=== PATIENT | male | born 1995 | race Caucasian/White ===

== ENCOUNTER 2019-06-14 12:50 | Emergency (ER) | payer OTHER, SELFPAY ==
[2019-06-14 12:53] VITALS: BP 140/92; PULSE 89; RESP 16; TEMP 36.7; O2SAT 96
--- NOTE | 2019-06-14 13:09 | W.ED.GENAD ---
Discharge Plan Disposition Patient Disposition: HOME Condition: Stable Discharge Details Chief Complaint: Orthopedic Clinical Impression: Knee sprain, bilateral Primary Care Provider: Samia,Local ED Provider: Maria Higginbotham Home Meds and New Rx's Prescriptions: New tramadol 50 mg tablet 50 mg PO BID PRN (Reason: pain) Qty: 4 RF: 0 Discharge Instructions Instructions: Knee Sprain (ED) Additional Instructions: Use knee braces and crutches for comfort. Take medications as directed. Please take Tylenol or Ibuprofen with food every 4-6 hours as needed for pain and swelling. Rest, ice, compression, elevation. You were put on a list for Ortho to follow-up with you they will give you a call. [facility] Follow up with primary care provider in 3-5 days. Return to ED sooner if any worsening or concerns. Increase oral fluids. Referrals: Omar Moctezuma MD [ [facility] STAFF PHYSICIAN] - Medical Decision Making 24-year-old male presents after a trip and fall down approximately 4 stairs landing on his bilateral knees. Patient states that he is unable to ambulate without severe pain and is tender to palpation over both the medial and lateral joints and over the patella. X-rays obtained including a sunrise view which are negative for any bony abnormality at this time. Patient given hydrocodone and Tylenol 5/325 mg p.o. in department. IMPRESSION: Normal radiographs of the left knee. IMPRESSION: Unremarkable radiographs of the right knee. Bilateral hinged knee braces ordered for patient and crutches and 600 mg ibuprofen p.o. Prescription ordered for Tramadol 50 ng PO BID prn # 6 tabs Instructed on RICE. 1517: Patient becoming very agitated and cussing at the staff, he is upset because he is in so much pain and we prescribed him fucking motrin. Care management called to speak to patient because he does not have a PCP. Will place patient on follow up Ortho call list and PCP list. Care management at and ED director Zurdo to deescalate patient. HPI General Mode of arrival: ambulatory. Date/Time Provider Initiated Documentation: 06/14/19 12:53. Limitations to Documentation: no limitations. Information obtained by: patient. HPI Narrative: Patient is a 24-year-old male who presents with bilateral knee pain after fall down 4 stairs at approximately 10:00 today. He states that his dog which is a pitbull pulled another stairs. He landed on both knees and has increased pain with ambulation. He is very tender to palpation, no obvious deformity. He denies any LOC, neck or back pain or any other injuries. Related Data Home Medications Medication Instructions Recorded Confirmed tramadol 50 mg PO BID PRN #4 tab 06/14/19 Previous Rx's Medication Instructions Recorded tramadol 50 mg PO BID PRN #4 tab 06/14/19 Allergies Allergy/AdvReac Type Severity Reaction Status Date / Time No Known Allergies Allergy Unverified 06/14/19 12:58 General Stated Complaint: Orthopedic AURA: 3 Review of Systems Narrative: Constitutional: Negative for weight loss, alert and oriented, well groomed, normal body habitus, appears comfortable. HEENT: Denies trauma, headaches, blurry vision, nasal discharge, sore throat, trouble swallowing. Chest: Denies chest pain, palpitations, irregular rhythm, hypertension. Respiratory: Denies Shortness of breath, cough, hemoptysis. GI: Denies abdominal pain, nausea, vomiting, diarrhea, constipation. : Denies dysuria, hematuria, flank pain, rectal bleeding. Extremities: Bilateral knee pain Neuro: Denies dizziness, blurry vision, weakness, syncope, headache or facial numbness. Hematologic: Denies easy bruising, intolerance to heat or cold, hair loss. [facility] Social History Smoking/Tobacco Use Status: Current every day Drug use: Occasionally Substance use type: marijuana Do you feel safe at home: Yes Do you feel safe in your relationship?: Yes Exam Narrative Exam Narrative: Constitutional: Allert and oriented x3. Appears stated age. Normal body habitus. Head: Normocephalic, no trauma. Eyes: Pupils PERRLA, Red reflex noted, EOM's intact. Eyelids symmetrical withour lesions, discharge, or swelling. ENT: Bilateral TM's WNL, External ear normal to inspection, no mastoid TTP, swelling, or erythema, Nasal turbinates WNL, no nasal discharge. Normal dentition, Posterior pharynx WNL, no exudate. Chest: RRR, Normal S1, S2, distal pulses intact. Resp: Lungs clear to auscultation bilaterally, no wheezes, rales, or rhonchi. Musculoskeletal: Normal gait, 5/5 strength to all four extremities. Bilateral knee pain. Negative anterior/posterior drawer test, negative Robbin test. He has tenderness to bilateral medial and lateral joints and over the patella. Distal pulses intact. Skin: No suspicious rashes or lesions. Capillary refill ?2 sec. Neurologic: Cranial nerves II-XII intact. Alert and oriented x 3. DTR's intact. Hematologic/Lymphatic: , no lymphadenopathy. Course Vital Signs Vital signs: Vital Signs Temperature 36.7 C 06/14/19 12:53 Pulse 89 06/14/19 12:53 Respiratory Rate 16 06/14/19 12:53 Blood Pressure 140/92 H 06/14/19 12:53 Pulse Oximetry 96 06/14/19 12:53 Temperature 36.7 C 06/14/19 12:53 Temperature Source Skin 06/14/19 12:53 Pulse 89 06/14/19 12:53 Respiratory Rate 16 06/14/19 12:53 Respiratory Effort 06/14/19 12:59 Blood Pressure 140/92 H 06/14/19 12:53 Blood Pressure Position Sitting 06/14/19 12:53 Pulse Oximetry 96 06/14/19 12:53 Oxygen Delivery Method Room Air 06/14/19 12:53 Oxygen Flow Rate 0 06/14/19 12:53 Pain Level 8 06/14/19 12:53
[2019-06-14] MEDS: HYDROcodone 5/Acetaminophen 325 TAB PO (13:14)
--- NOTE | 2019-06-14 13:50 | DI.RAD_ITS ---
EXAM: XR KNEE RT 4V AP,LAT,NANCY,PAT CLINICAL HISTORY: FALL ONTO BILATERAL KNEES. TECHNIQUE: 2D digital imaging was performed. COMPARISON: No exams were available for comparison FINDINGS: BONES: No acute fracture is present. No bony destructive lesion is seen. JOINTS: The knee is normally aligned. No joint effusion is seen. SOFT TISSUE: Normal. IMPRESSION: Unremarkable radiographs of the right knee.
--- NOTE | 2019-06-14 13:51 | DI.RAD_ITS ---
EXAM: XR KNEE LT 4V AP,LAT,NANCY,PAT CLINICAL HISTORY: Fall onto knees. TECHNIQUE: 2D digital imaging was performed. COMPARISON: XR KNEE RT 4V AP,LAT,NANCY,PAT from 06/14/2019 FINDINGS: BONES: No acute fracture is present. No bony destructive lesion is seen. JOINTS: The knee is normally aligned. No joint effusion is seen. SOFT TISSUE: Normal. IMPRESSION: Normal radiographs of the left knee.
[2019-06-14] MEDS: Ibuprofen 600 MG TAB PO (15:11)
--- NOTE | 2019-06-14 16:21 | PDOC.ERCMPRO ---
- If Service Date Differs Date of service: 06/14/19 Time of Service: 16:21 Care Management Progress Note CM meets with patient accompanied by Zurdo Pino, ED Director. Shmuel voices some complaints about his care in the ED and asks to go home. He will follow-up with Dr. Moctezuma at [facility]. RODOLFO faxes a referral to Dr. Deluca, [facility], who is today's tele doc, as Shmuel does not have a local primary care physician.
== END 2019-06-14 15:32 | disposition home or self-care (01) ==
PROVIDERS: Emergency Provider Registered Nurse Emergency
DX: S83.91XA Sprain of unspecified site of right knee, initial encounter (principal); S83.92XA Sprain of unspecified site of left knee, initial encounter; W10.8XXA Fall (on) (from) other stairs and steps, initial encounter
CPT/HCPCS: 99284; 73564; E0114; L1810

== ENCOUNTER 2020-02-07 17:23 | Emergency (ER) | payer OTHER, SELFPAY ==
[2020-02-07 17:30] VITALS: BP 164/114; PULSE 72; TEMP 36.7; O2SAT 98
--- NOTE | 2020-02-07 17:38 | W.ED.GENAD ---
Discharge Plan Disposition Patient Disposition: HOME Condition: Good Discharge Details Clinical Impression: Contusion of hand Primary Care Provider: Unknown,Unknown ED Provider: Marcy Roberts Home Meds and New Rx's Prescriptions: No Action No Known Home Meds RF: 0 Discharge Instructions Instructions: Contusion in Adults (ED) Additional Instructions: Encourage rest, ice, elevation. Tylenol and ibuprofen as needed for discomfort. Your x-rays are reassuring today. Your symptoms are more consistent with contusion and swelling. However, if your pain persist over the next 1 to 2 weeks please follow-up with your primary care for reevaluation. Please stop smoking. Please discuss your elevated blood pressure with your primary care. If you develop any redness, warmth, drainage, increased pain, numbness/tingling or other new/worsening symptoms to seek care urgently once again. Please consider an Stef wrap to help with compression as this will help with the swelling and pain. Discharge Data Discharge Date/Time-TO BE ENTERED AT DEPARTURE: 02/07/20 18:40 Medical Decision Making Patient is a pleasant [id number] 24-year-old male presents today with chief complaint left hand pain. He reports that around 1 PM today he struck the central dorsal aspect of his left hand with a hammer. Reports she was able to continue his workday without difficulty. However, once he was at home more sedentary the pain began to increase. States that his hand is feeling very stiff. He reports subjective swelling. Report pain with extension of his fingers or wrist. On exam, patient appears nontoxic. He is noted to be hypertensive at 164/114, vital signs otherwise within normal limits. Do not appreciate any objective evidence of trauma. Did not appreciate swelling, ecchymosis. He is able to extend all his fingers against resistance with no evidence of ligamentous injury. No palpable bony abnormality. Able to extend his wrist well. Patient does have limited bath tester strength secondary to pain in the dorsal aspect of his hand. Will obtain x-rays to evaluate for any bony pathology. He has not taken anything for discomfort will give Tylenol and ibuprofen. FINDINGS: Bones/joints: Unremarkable. Soft tissues: Unremarkable. IMPRESSION: No evidence for acute bony injury. If clinical symptoms persist recommend followup film in 7-10 days. Discussed these findings with the patient. As he is having some swelling and discomfort I did advise a splint or an Stef wrap which he has declined. Encourage rest, ice, elevation. Advise follow-up with primary care regarding his hand discomfort as well as his elevated blood pressure. Return precautions were discussed. Offered work note which patient declined. All his questions and concerns were addressed and he is agreement this plan. Patient reports that he does have a primary care with her name. HPI General Mode of arrival: ambulatory. Date/Time Provider Initiated Documentation: 02/07/20 17:37. Limitations to Documentation: no limitations. Information obtained by: patient, family (Significant other) and RN notes reviewed. History of Present Illness 24 year old M presents to the emergency department with the chief complaint of Left hand pain, described as moderate, with intensity rated at 7. Quality is described as aching, and is localized to the left and upper extremity. Patient reports no radiation. Patient started experiencing this hour(s) and it has been constant. Immobilization improves symptom(s), Movement worsens symptoms . Patient notes no other symptoms.. Patient did receive the following treatments prior to arrival, none Related Data Home Medications Medication Instructions Recorded Confirmed Unknown [No Known Home Meds] 02/07/20 02/07/20 Allergies Allergy/AdvReac Type Severity Reaction Status Date / Time No Known Allergies Allergy Unverified 02/07/20 17:33 General Stated Complaint: Orthopedic AURA: 3 Review of Systems Constitutional Constitutional: Reports as per HPI, Denies chills, Denies fever(s), Denies headache(s) and Denies weakness ENT Ears, Nose, Mouth, and Throat: Denies headache(s) Cardiovascular Cardiovascular: Reports as per HPI Respiratory Respiratory: Reports as per HPI and Denies cough Musculoskeletal Musculoskeletal: Reports as per HPI and Denies tingling Integumentary/Breasts Skin/Breast: Reports as per HPI, Denies rash and Denies wounds Neurologic Neurologic: Reports as per HPI, Denies headache(s), Denies tingling, Denies paresthesias and Denies weakness [facility] Medical History No-show for appointment Social History Smoking/Tobacco Use Status: Current every day Tobacco Type: cigarettes Alcohol Intake: current Alcohol Intake frequency: a few times a week Alcohol type: beer Drug use: Occasionally Substance use type: marijuana Do you feel safe at home: Yes Do you feel safe in your relationship?: Yes Exam Const General: cooperative, healthy appearing, comfortable, no acute distress, well developed and well groomed Nutritional Appearance: average body habitus and well nourished Orientation: alert and awake Resp Effort & Inspection: normal respiratory effort, able to speak in complete sentences and no respiratory distress Cardio Rate: regular rate Rhythm: regular rhythm Skin General skin exam: no rashes or lesions noted Lesions: no lesions Rashes: no rashes Trauma: no lacerations or abrasions Neuro General: patient alert and patient awake Cognition: normal cognition Speech: speech normal Gait: normal gait Motor: muscle tone normal throughout Sensory Exam: no sensory deficits noted Extrem Left upper extremity: normal to inspection, full ROM, normal capillary refill, no joint enlargement, elbow/forearm Details: normal to inspection, wrist Details: normal to inspection, tenderness (dorsal distal radius, no pain over snuffbox), swelling (minor swelling dorsal left wrist), normal ROM, normal vascular exam and radial pulse present; no unusual warmth, no abrasions, no lacerations, no ecchymosis and no crepitus and hand Details: normal to inspection, normal capillary refill, neuromotor exam normal, neurosensory exam normal, tendon exam normal, tenderness Location: of the dorsal hand Location: distally and proximally, vascular exam Details: radial pulse present and normal capillary refill, normal ROM of fingers and swelling Location: of the dorsal hand Location: proximally; no ecchymosis and no crepitus Psych Appearance: grossly normal and well kempt Mental Status: mental status grossly normal Speech and Movement: speech and movement normal Course Vital Signs Vital signs: Vital Signs Temperature 36.7 C 02/07/20 17:30 Pulse 72 02/07/20 17:30 Blood Pressure 164/114 H 02/07/20 17:30 Pulse Oximetry 98 02/07/20 17:30 Temperature 36.7 C 02/07/20 17:30 Pulse 72 02/07/20 17:30 Respiratory Effort Non-Labored 02/07/20 17:32 Blood Pressure 164/114 H 02/07/20 17:30 Blood Pressure Position Sitting 02/07/20 17:30 Pulse Oximetry 98 02/07/20 17:30 Oxygen Delivery Method Room Air 02/07/20 17:30 Oxygen Flow Rate 0 02/07/20 17:30 Pain Level 6 02/07/20 17:34
--- NOTE | 2020-02-07 17:45 | DI.RAD_ITS ---
EXAM: XR HAND LT COMPLETE CLINICAL HISTORY: struck with hammer. TECHNIQUE: 2D digital imaging was performed. COMPARISON: CR LEFT HAND COMPLETE from 09/02/2014 FINDINGS: BONES: No acute fracture is present. No bony destructive lesion is seen. JOINTS: No dislocation present. SOFT TISSUE: Normal. IMPRESSION: Unremarkable radiographs of the left hand. DATA REPOSITORY: RADIATION DOSE DELIVERED:
[2020-02-07] MEDS: Acetaminophen 500 MG TAB 1000 MG PO (18:03)
[2020-02-07] MEDS: Ibuprofen 600 MG TAB PO (18:03)
--- NOTE | 2020-02-08 16:04 | DI.VRAD_ITS ---
PROCEDURE INFORMATION: Exam: XR Left Hand Exam date and time: 02/07/2020 6:15 PM Age: 24 years old Clinical indication: Injury or trauma; Other: Hammer to proximal 3 metacarpal; Blunt trauma (contusions or hematomas) and wound; Hand; Left TECHNIQUE: Imaging protocol: XR Left hand. Views: 3 or more views. COMPARISON: CR LEFT HAND COMPLETE 01/28/2015 04:43 FINDINGS: Bones/joints: Unremarkable. Soft tissues: Unremarkable. IMPRESSION: No evidence for acute bony injury. If clinical symptoms persist recommend followup film in 7-10 days. Dictated and Authenticated by: Vika Glasgow MD. Ordering:MERCEDES Vidal MD
== END 2020-02-07 18:40 | disposition home or self-care (01) ==
PROVIDERS: Emergency Provider Physician Assistant
DX: S60.222A Contusion of left hand, initial encounter (principal); W27.0XXA Contact with workbench tool, initial encounter; Y99.0 Civilian activity done for income or pay; R03.0 Elevated blood-pressure reading, without diagnosis of hypertension
CPT/HCPCS: 99283; 73130

== ENCOUNTER 2020-04-06 12:40 | Emergency (ER) | payer SELFPAY ==
[2020-04-06 12:45] VITALS: BP 136/100; PULSE 94; RESP 16; TEMP 36.5; O2SAT 97
--- NOTE | 2020-04-06 12:54 | ED.GENADUL_ITS ---
Discharge Plan Disposition Patient Disposition: HOME Condition: Stable Discharge Details Clinical Impression: Finger laceration Primary Care Provider: None,None ED Provider: Lindsey Guerrero Home Meds and New Rx's Prescriptions: New cephalexin [Keflex] 500 mg capsule 500 mg PO TID 5 Days Qty: 15 RF: 0 Discharge Instructions Instructions: Finger Laceration (ED) Additional Instructions: Keep wound clean and dry. Cover wound with bandage if risk of contamination. Otherwise you can keep the wound open to air if resting at home to allow edges to dry and heal. Take antibiotics until finished. Return to the emergency department in 7 days for suture removal. You can return to the emergency department at any time if you develop any worsening or new concerning symptoms such as fever, increased pain, redness or swelling. Discharge Data Discharge Date/Time-TO BE ENTERED AT DEPARTURE: 04/06/20 14:16 Discharge Physician: Lindsey Guerrero Medical Decision Making 25-year-old male presents with left second finger laceration sustained while cutting carpet with a knife at work prior to arrival. Patient is a 1.5 cm straight laceration on his left dorsal second finger. N eurovascular intact. No evidence of tendon injury. No obvious foreign body. Tetanus given. Wound irrigated and soaked. 3 nylon 5-0 sutures placed at bedside. Due to questionable contaminated knife, will give prophylactic antibiotics. Advised to return to the ED in 7 days for suture removal. Usual and customary return precautions given prior to discharge. Medical Records Medical records reviewed: Yes I reviewed the patient's medical records. HPI General Mode of arrival: ambulatory . Date/Time Provider Initiated Documentation: 04/06/20 12:45 . Limitations to Documentation: no limitations . Information obtained by: patient . HPI Narrative: Patient is a 25-year-old male who presents with left second finger laceration sustained with a knife while cutting carpet at work. Last tetanus 2007. Patient denies any known foreign bodies. Related Data Home Medications Medication Instructions Recorded Confirmed cephalexin [Keflex] 500 mg PO TID 5 Days #15 cap 04/06/20 Previous Rx's Medication Instructions Recorded cephalexin [Keflex] 500 mg PO TID 5 Days #15 cap 04/06/20 Allergies Allergy/AdvReac Type Severity Reaction Status Date / Time No Known Allergies Allergy Unverified 04/06/20 12:48 General Stated Complaint: Laceration AURA: 3 Review of Systems All systems reviewed & are unremarkable except as noted in HPI and below PFSH Medical History (Updated 04/06/20 @ 19:31 by Lindsey Guerrero DO) No significant past medical history Surgical History (Updated 04/06/20 @ 19:31 by Lindsey Guerrero DO) No significant past surgical history Social History Smoking/Tobacco Use Status: Current every day Tobacco Type: cigarettes Smoking risk assessment performed?: Yes Alcohol Intake: current Alcohol Intake frequency: a few times a week Alcohol type: beer Drug use: Occasionally Substance use type: marijuana Do you feel safe at home: Yes Do you feel safe in your relationship?: Yes Exam Const General: cooperative, healthy appearing and no acute distress HENMT Head: normal to inspection Mouth: oral mucosae normal Eyes General: appearance normal, both eyes and all related structures Neck Neck: normal visual inspection Resp Effort & Inspection: normal respiratory effort and able to speak in complete sentences Cardio Rate: regular rate Skin General skin exam: no rashes or lesions noted Neuro General: patient alert, patient awake and patient oriented x3 Motor: muscle tone normal throughout Extrem Left upper extremity: hand Hand/finger images: 1. 1.5cm straight laceration on dorsal aspect of L 2nd finger of distal phalange between DIP and PIP joint. No active bleeding. No tendon injury. No bony involvement. Psych Appearance: grossly normal Affect: normal affect Course Vital Signs Vital signs: Vital Signs Temperature 97.7 F 04/06/20 12:45 Pulse 94 H 04/06/20 12:45 Respiratory Rate 16 04/06/20 12:45 Blood Pressure 136/100 H 04/06/20 12:45 Pulse Oximetry 97 04/06/20 12:45 Temperature 97.7 F 04/06/20 12:45 Temperature Source Temporal Artery Scan 04/06/20 12:45 Pulse 94 H 04/06/20 12:45 Respiratory Rate 16 04/06/20 12:45 Respiratory Effort 04/06/20 12:47 Blood Pressure 136/100 H 04/06/20 12:45 Blood Pressure Position Sitting 04/06/20 12:45 Pulse Oximetry 97 04/06/20 12:45 Oxygen Delivery Method Room Air 04/06/20 12:45 Oxygen Flow Rate 0 12/12/20 12:45 Procedures Laceration Laceration 1: Site: hand (2nd finger) Side (If applicable): left Size (cm): 1.5 Description: linear Depth: simple, single layer Local Anesthetic: Lidocaine 1% Amount of anesthesia used (mL): 4 Pre-repair: wound explored and irrigated extensively Skin layer closed with: nylon Size (cm): 5-0 Number of sutures: 3 Technique: simple, interrupted
[2020-04-06] MEDS: Acetaminophen 325 MG TAB 650 MG PO (13:14)
== END 2020-04-06 14:16 | disposition home or self-care (01) ==
PROVIDERS: Emergency Provider Physician Assistant
DX: S61.211A Laceration without foreign body of left index finger without damage to nail, initial encounter (principal); W26.0XXA Contact with knife, initial encounter; Y99.0 Civilian activity done for income or pay
CPT/HCPCS: 12001; 90471

== ENCOUNTER 2021-01-02 16:56 | Outpatient (REF) | payer SELFPAY ==
[2021-01-02 22:04] LABS: Calculated LDL 108 mg/dL (<100); Cholesterol 245 mg/dL (<200); HDL Cholesterol 60 mg/dL (40-60); Triglyceride 389 mg/dL (<150)
[2021-01-02 22:11] LABS: Hemoglobin A1C 5.4 % (<5.7)
== END 2021-01-02 16:57 | disposition home or self-care (01) ==
LOC: LBN 16:56
PROVIDERS: PCP Nurse Practitioner Family; Visit Provider Nurse Practitioner Family
DX: Z13.1 Encounter for screening for diabetes mellitus (principal); Z13.220 Encounter for screening for lipoid disorders
CPT/HCPCS: 80061; 83036

== ENCOUNTER → 2022-01-06 14:42 | Outpatient (CLI) | payer OTHER, SELFPAY ==
--- NOTE | 2022-01-06 12:45 | DI.RAD_ITS ---
Exam(s) XR TIB/FIB LT EXAM: XR TIB/FIB LT CLINICAL HISTORY: Pain in LEFT Leg--M79.605. TECHNIQUE: 2D digital imaging was performed. Two views. COMPARISON: No exams were available for comparison FINDINGS: BONES: No acute fracture is present. No bony destructive lesion is seen. Visualized portion of knee a nd ankle joints are unremarkable. There is a small talar beak. SOFT TISSUE: Normal. IMPRESSION: Unremarkable radiographs of the left tibia and fibula. DATA REPOSITORY: RADIATION DOSE DELIVERED:
== END ==
PROVIDERS: PCP Nurse Practitioner Family; Visit Provider Nurse Practitioner Family
DX: M79.605 Pain in left leg (principal)
CPT/HCPCS: 73590

== ENCOUNTER 2022-01-16 16:54 | Outpatient (REF) | payer OTHER, SELFPAY ==
[2022-01-16 21:08] LABS: CREATININE 1.2 mg/dL (0.70-1.30); Potassium 3.7 mmol/L (3.5-5.1)
[2022-01-16 21:38] LABS: Calculated LDL 78 mg/dL (<100); Cholesterol 193 mg/dL (<200); HDL Cholesterol 58 mg/dL (40-60); Triglyceride 288 mg/dL (<150)
== END 2022-01-16 16:55 | disposition home or self-care (01) ==
LOC: LBN 16:54
PROVIDERS: PCP Nurse Practitioner Family; Visit Provider Nurse Practitioner Family
DX: I10 Essential (primary) hypertension (principal); E78.5 Hyperlipidemia, unspecified
CPT/HCPCS: 80061; 82565; 84132

== ENCOUNTER 2024-10-01 22:42 | Emergency (ER) | payer OTHER, SELFPAY ==
[2024-10-01] VITALS (9 sets, daily range): BP systolic 141–168; BP diastolic 119–125; PULSE 95–141; RESP 0–23; O2SAT 96–99
--- NOTE | 2024-10-01 22:47 | W.ED.GENAD ---
Discharge Plan Disposition Patient Disposition: Admit to [facility] Condition: Stable Discharge Details Clinical Impression: Fall from height of greater than 3 feet, Fracture of left tenth rib, Fracture of left eleventh rib, Laceration of spleen, Alcohol intoxication, Elevated liver function tests Primary Care Provider: Demetrius Woodruff ED Provider: Kenneth Dougherty [place] [facility] and New Rx's Prescriptions: No Action lisinopril 20 mg tablet 20 mg PO DAILY Qty: 90 3RF cyclobenzaprine 10 mg tablet 10 mg PO ONCE Patient Comments: TAKE 1 TABLET BY MOUTH AT BEDTIME NEEDED FOR MUSCLE SPASM HPI General Mode of arrival: wheelchair. Date/Time Provider Initiated Documentation: 10/01/24 22:46. Limitations to Documentation: no limitations. Information obtained by: patient and RN notes reviewed. HPI Narrative: Patient presents to ED with left sided thoracic and abdominal pain. Patient fell out of a second story door that he did not realize had no stairs down. Landed on a knee wall striking the left thoracal abdominal area. He denies striking his head and had no loss of consciousness. He denies any neck pain or neurologic symptoms. Upper and lower extremities without pain or deformity. He has pain along the lower left lateral ribs and flank. He does not feel short of breath but is unable to take a deep breath because of pain. Event just occurred and he had his girlfriend drive him in to the ED. Related Data Home Medications ?Medication ?Instructions ?Recorded ?Confirmed lisinopril 20 mg tablet 20 mg PO DAILY #90 tabs 03/20/24 10/01/24 cyclobenzaprine 10 mg tablet 10 mg PO ONCE 10/01/24 10/01/24 Previous Rx's ?Medication ?Instructions ?Recorded lisinopril 20 mg tablet 20 mg PO DAILY #90 tabs 03/20/24 Allergies Allergy/AdvReac Type Severity Reaction Status Date / Time No Known Allergies Allergy Verified 10/01/24 22:52 General AURA: 3 Exam Narrative Exam Narrative: Gen: WDWN male is uncomfortable holding left side. VS per triage. HENT: NC/AT. Normal face. Eyes: PERRL and EOMI. Neck: Trachea midline. Non-tender c-spine. Chest: Normal breathing with clear and equal BS. Chest wall tender left lateral/posterior. CV: RRR w/o murmur. Good distal pulses. Abd: Soft/ND. Tender left side with abrasion/bruising to left flank. Back: No TLS tenderness. Neuro: A+Ox3. Normal speech and mentation. CN II-XII intact. No gross motor or sensory deficit. Ext: No deformity or tenderness. Normal ROM. Skin: Warm and dry. Medical Decision Making Patient presenting to ED with left thoracal abdominal trauma after a second story fall out of a doorway onto a knee wall. He did not strike his head and had no loss of consciousness. He has no neck or back pain, neurologic symptoms, extremity pain or deformity. He has a GCS of 15 and is awake and talking. He has breath sounds bilaterally. Will establish 2 IVs and start fluids. Morphine as needed as needed. Trauma labs and CT of the chest abdomen pelvis ordered. Patient remains hemodynamically stable. His initial hemoglobin is normal at 16.3. CT of chest and abdomen shows left 10th and 11th rib fracture with a grade 2 splenic laceration without extravasation. There is also some stranding in the left retroperitoneum in the same area suggesting a small hematoma. Call was placed to [facility] and I spoke to trauma surgery. They unfortunately are at capacity and are very limited in ability to accept patients. However, they have reviewed the images and feel that he is likely a candidate for admission here for monitoring and repeat hemoglobins, pain control. Expectation is that if there is any acute change he would be accepted for immediate transfer to [facility] at that time. I have placed a call to our general surgeon, Dr. Roberts to discuss with him. I have spoke to Dr. Roberts. He has agreed to admit the patient to the ICU for close monitoring and repeat hemoglobin/hematocrit. I have discussed this with the patient who is comfortable with admission here. Patient's initial labs were hemolyzed. His CMP has come back with elevated liver function with an AST of 700 and ALT of 350. His alcohol level is also elevated at 210. I have sat down and had a talk with him. He does admit to some heavy drinking on weekends with his buddies. He is not a daily drinker. He has never had withdrawal symptoms. We have discussed cutting back on his alcohol use given elevated liver function. He also has hyponatremia at 130 little bit of an anion gap at 16 suggesting some heavy drinking over the weekend. Also of note, nursing and lab are reporting that his blood is significantly lipemic. Glucose is also elevated at 190. These will need to be addressed by his primary care in an outpatient setting. Imaging Data Radiologic Study: Attestation: I personally reviewed and interpreted this imaging study as follows: Imaging: CT Scan My impression: see [facility] Lab Data Lab results reviewed: Yes I reviewed the patient's lab results. Lab results narrative: see [facility] Critical Care Time Critical Care Time Critical Care Time: Yes Total Critical Care Time: 45 Attestation: Upon my evaluation, this patient had a high probability of imminent or life-threatening deterioration, which required my direct attention, intervention, and personal management. I have personally provided 45 minutes of critical care time exclusive of time spent on separately billable procedures. Time includes monitoring for potential decompensation, ordering of tests and medications, review of laboratory and radiology results, discussion with consultants and documentation . Interventions were performed as documented above in procedures. [facility] All Active Problems (Updated 10/02/24 @ 01:00 by Kenneth Dougherty MD) Elevated liver function tests (Acute) Alcohol intoxication (Acute) Laceration of spleen (Acute) Fracture of left eleventh rib (Acute) Fracture of left tenth rib (Acute) Fall from height of greater than 3 feet (Acute) Infrapatellar bursitis of both knees (Acute) Overweight (Acute) Medical History Hypertension Hyperlipidemia Surgical History No significant past surgical history Family History Mother No problems noted. Father No problems noted. Sister No problems noted. Brother No problems noted. Maternal Grandfather , 78 No problems noted. Paternal Grandfather No problems noted. Maternal Grandmother No problems noted. Paternal Grandmother No problems noted. Social History Smoking/Tobacco Use Status: Current every day Tobacco Type: cigarettes Tobacco: How many years used: 10 Quit status: has quit before Second Hand Exposure: Yes Smoking risk assessment performed?: Yes Alcohol Intake: current Alcohol Intake frequency: a few times a week Alcohol type: beer, wine and hard liquor Drug use: Socially Substance use type: marijuana Do you feel safe at home: Yes Do you feel safe in your relationship?: Yes
--- NOTE | 2024-10-01 23:00 | DI.CT_ITS ---
Exam(s) CT CHEST/ABD/PEL W EXAM: CT CHEST/ABD/PEL W CLINICAL HISTORY: trauma/fell 10ft hit left side on knee wall. TECHNIQUE: Imaging Protocol: Axial computed tomography images with coronal and sagittal reformatted images were created and reviewed CONTRAST MATERIAL: Intravenous: Omnipaque 350 Contrast volume:100 ml Oral: None COMPARISON: No exams were available for comparison FINDINGS: CHEST: LUNGS: No infiltrates nor lung contusion or pleural effusion nor pneumothorax. No incidental nodules .. MEDIASTINUM: No evidence of sternal fracture or mediastinal hematoma. No hilar nor mediastinal adeno ellie. CARDIAC: Heart size is normal. There is no pericardial effusion.Thoracic aorta unremarkable. OSSEOUS: There are nondisplaced fractures of the posterior aspect of left 9th, 10th, and 11th ribs. No pneumothorax.. ABDOMEN: There is no ascites. No obvious bowel wall hematoma. LIVER: Intact. No laceration or subcapsular hematoma. No lesions. No dilated intrahepatic ducts. GALLBLADDER/BILIARY: No obvious gallbladder pathology. CBD is not dilated. PANCREAS: No evidence of pancreatic mass nor dilatation of the pancreatic duct. SPLEEN: There is a significant laceration and contusion in the inferior half of the spleen. Small am ount of adjacent fluid-blood. This splenic vein appears patent. ADRENALS: Right adrenal unremarkable. Some streaking around the left adrenal noted. Probably relate d to small vessel hemorrhage. KIDNEYS: Right kidney unremarkable. However, there is some abnormal streaking medial to the left kid pablo prominently around the left renal vein which itself appears patent. Suspect small vessel injury. The left renal artery appears intact.. No incidental calculi nor masses nor hydronephrosis. ABDOMINAL AORTA: Intact. Unremarkable. LYMPH NODES: There is no retroperitoneal nor paraaortic adenopathy. ABDOMINAL WALL: No evidence of significant anterior abdominal wall nor inguinal hernia. GI: There is no evidence of bowel obstruction. PELVIS: LYMPH NODES: There is no intrapelvic nor inguinal adenopathy. GI: No evidence of appendicitis.No evidence of sigmoid diverticulitis. URINARY BLADDER: Not distended. Does not contain clots nor incidental lesions nor calculi. Pelvic u reters are not dilated. REPRODUCTIVE: Prostate normal size. OSSEOUS: No compression fractures of the vertebrae evident. No listhesis. IMPRESSION: 1. There are acute nondisplaced fractures of the left 9th, 10th, and 11th ribs. No pneumothorax. No lung contusion or pleural effusion. 2. There is significant laceration contusion in the inferior half of the spleen. 3. There is some fat stranding in the left side of the retroperitoneum around the left renal vein and artery and left adrenal. Consistent with small vessel injury hemorrhage. 4. Close clinical follow-up recommended. Preliminary virtual Radiology report was reviewed RADIATION DOSE DELIVERED: 344.19mGy.cm Total DLP DATA REPOSITORY: All CT scans at this facility are submitted to the National Radiology Data Registry (NRDR) Dose Index Registry (DIR) with the [employer] (ACR). RADIATION OPTIMIZATION: All CT scans at this facility use at least one of these dose optimization te chniques: automated exposure control; mA and/or kV adjustment per patient size (includes targeted exa ms where dose is matched to clinical indication); or iterative reconstruction.
[2024-10-01] MEDS: MORPHine 10 MG/ML VIAL 5 MG IVP (23:06)
[2024-10-01 23:08] LABS: Abs Immature Grans 0.03 10^3/uL (0.0-0.06); HCT 43.5 % (40.0-50.0); HGB 16.3 g/dL (13.5-17.5); MCH 34.4 pg (27.0-33.0); MCHC 37.5 % (32.0-36.0); MCV 92 fL (80-95); MPV 9.3 fL (8.0-11.0); Platelet Count 346 10^3/uL (130-400); RBC 4.74 10^6/uL (4.36-5.78); RDW 13.1 % (11.8-14.1); RDW-SD 44.6 fL; WBC 7.17 10^3/uL (4.4-10.8)
[2024-10-01] MEDS: Omnipaque 350 MG/ML 100 ML BTL IJ (23:08)
[2024-10-01] MEDS: Normal Saline - Diluent 50 ML VIAL IJ (23:09)
[2024-10-01 23:31] LABS: Absolute Basophil Count 0.07 10^3/uL (0.0-0.2); Absolute Eosinophil Count 0.07 10^3/uL (0.0-0.7); Absolute Monocyte Count 0.29 10^3/uL (0.1-0.8); Absolute Neutrophil Count 2.94 10^3/uL (1.2-6.7); Bands % 1 %
[2024-10-01 23:32] LABS: Diff Comment Manual Differential; RBC Morphology Normal
--- NOTE | 2024-10-01 23:40 | DI.VRAD_ITS ---
Addendum created by Godfrey Schaffer MD on 10/01/2024 11:42:45 PM EDT: THIS REPORT CONTAINS FINDINGS THAT MAY BE CRITICAL TO PATIENT CARE. The findings were verbally communicated by me to DOMINICK ROSAS via telephone conference at 11:42 PM EDT on 10/01/2024. The findings were acknowledged and understood. Initial report created on 10/01/2024 11:40:29 PM EDT: PROCEDURE INFORMATION: Exam: CT Chest With Contrast; Diagnostic Exam date and time: 10/01/2024 11:04 PM Age: 29 years old Clinical indication: Other: Fall 10ft onto left side TECHNIQUE: Imaging protocol: Diagnostic computed tomography of the chest with contrast. 3D rendering (Not supervised by radiologist): MIP and/or 3D reconstructed images were created by the technologist. Contrast material: 350; Contrast volume: 100 ml; Contrast route: INTRAVENOUS (IV); COMPARISON: No relevant prior studies available. FINDINGS: Lungs: Normal. Pleural spaces: Unremarkable. No pneumothorax. No pleural effusion. Heart: Normal. Lymph nodes: No pathologically-enlarged lymph nodes. Vasculature: Unremarkable. No aortic aneurysm. Bones/joints: Acute, mildly displaced left posterior 10th and 11th rib fractures. Soft tissues: Normal. IMPRESSION: Acute, mildly displaced left posterior 10th and 11th rib fractures. PROCEDURE INFORMATION: Exam: CT Abdomen And Pelvis With Contrast Exam date and time: 10/01/2024 11:04 PM Age: 29 years old Clinical indication: Other: Fall 10ft onto left side TECHNIQUE: Imaging protocol: Computed tomography of the abdomen and pelvis with contrast. 3D rendering (Not supervised by radiologist): MIP and/or 3D reconstructed images were created by the technologist. Contrast material: 350; Contrast volume: 100 ml; Contrast route: INTRAVENOUS (IV); COMPARISON: No relevant prior studies available. FINDINGS: Liver: Normal. Gallbladder and biliary ducts: Normal. Pancreas: Normal. Spleen: 2.6 cm hypodensity within the central and inferior spleen (series 6, images 48-53), most compatible with splenic laceration. No evidence of active hemorrhage. Adrenal glands: Normal. No mass. Kidneys and ureters: Normal. Stomach and bowel: Normal. Appendix: Appendix normal. Intraperitoneal space: Unremarkable. No free air. No significant fluid collection. Retroperitoneal space: Minimal fat stranding within the left retroperitoneum at the level of the left renal vein and artery, possibly minimal hemorrhage from small-vessel injury (series 6, images 59-65). Vasculature: Unremarkable. No abdominal aortic aneurysm. Lymph nodes: Unremarkable. No enlarged lymph nodes. Urinary bladder: Unremarkable as visualized. Reproductive: Unremarkable as visualized. Bones/joints: No acute abnormality. Soft tissues: Normal. IMPRESSION: 1. 2.6 cm hypodensity within the central and inferior spleen (series 6, images 48-53), most compatible with splenic laceration (grade II injury). No evidence of active hemorrhage. 2. Minimal fat stranding within the left retroperitoneum at the level of the left renal vein and artery, possibly minimal hemorrhage from small-vessel injury (series 6, images 59-65). Dictated and Authenticated by: Godfrey Schaffer MD. Orderin Farhat Cooper MD
[2024-10-01] MEDS: Lactated Ringers 1,000 ML 1000 ML IV (23:48)
[2024-10-02] VITALS (50 sets, daily range): BP systolic 124–185; BP diastolic 93–135; PULSE 99–178; RESP 8–28; O2SAT 78–100
[2024-10-02 00:02] LABS: Albumin 3.4 g/dL (3.4-5.0); BUN 17 mg/dL (7-18); Bilirubin, Total 1.1 mg/dL (0.2-1.0); Calcium 6.8 mg/dL (8.5-10.1); Chloride 95 mmol/L (98-107); Estimated GFR 103.84 (mL/min/1.73m2); Glucose 190 mg/dL (74-106); Lipase 63 U/L (<78); Potassium 3.5 mmol/L (3.5-5.1); Sodium 130 mmol/L (136-145)
[2024-10-02] MEDS: MORPHine 10 MG/ML VIAL 5 MG IVP ×3 (00:04→04:59)
[2024-10-02 00:12] LABS: ETHANOL BLOOD 210.6 mg/dL (<10)
[2024-10-02 00:40] LABS: ALT 350 U/L (16-63); AST 700 U/L (15-37)
[2024-10-02 00:41] LABS: Alkaline Phosphatase 158 U/L (46-116); Total Protein 6.8 g/dL (6.4-8.2)
--- NOTE | 2024-10-02 00:59 | W.PM.HP.N ---
Date of service: 10/02/24 Time of Service: 00:59 Assessment and Plan Assessment and plan (1) Injury of spleen: Status: Acute Assessment and plan: Anselmo has a Grade 4 blunt spleen injury with parehcnhymal psuedoaneursym or blush. Stranding of the perinephric fat also suggests grade 1 blunt renal injury as well. He also has non-displaced fractures of the left 10th and 11th ribs. I met with Anselmo and his girlfriend, and explained my interpretation of the imaging, and assessment of his injuries. He has had a persistent tachycardia since arrival to the emergency department, and given the suggestive of a pseudoaneurysm on the CT scan, I think it is probably in his best interest to transfer to a tertiary care facility. I did speak with the surgeons at [facility], who agree the suggestion of a blush or pseudoaneurysm on the CT scan. They do not have capacity to accept him for transfer because of bed availability. I reached out to [facility], and reviewed the imaging with the trauma service, and discussed the case with the emergency department, and they have agreed to transfer him there for definitive treatment of his injuries. History of Present Illness History of Present Illness Chief Complaint: fall with abdominal pain Narrative: Anselmo is a 29 year old man who fell from a second story doorway. He was in a new house and opened the door to exit not knowing that there was no external staircase. He fell approximetly 10-15 ft and landed on a piece of concrete. He did not loose consciousness. He felt pain in the left flank. He came to the emergency department by private vehicle. He had no loss consciousness. He was seen and evaluated in the emergency department, and underwent a CT scan of his chest abdomen and pelvis. There was evidence of traumatic injury to the spleen, as well as fractures to the left-sided 10th and 11th ribs, and some signs of hemorrhage around the left kidney as well. Initial plan was to transfer him to [facility], but they are at capacity, and felt that this was a grade 2 spleen injury, could probably safely be managed here. Review of Systems Constitutional Constitutional: Denies fever(s) and Denies frequent falls Eyes Eyes: Reports system reviewed and no additional complaints, except as documented ENT Ears, Nose, Mouth, and Throat: Reports system reviewed and no additional complaints, except as documented Cardiovascular Cardiovascular: Denies chest pain and Denies dyspnea Respiratory Respiratory: Denies chest congestion, Denies cough and Denies dyspnea Gastrointestinal Gastrointestinal: Denies nausea and Denies vomiting Genitourinary Genitourinary: Reports oliguria Musculoskeletal Musculoskeletal: Reports myalgias Neurologic Neurologic: Reports system reviewed and no additional complaints, except as documented and Denies frequent falls Psychiatric Psychiatric: Reports system reviewed and no additional complaints, except as documented PFSH All Active Problems (Updated 10/02/24 @ 02:56 by Erick Roberts MD) Injury of spleen (Acute) Elevated liver function tests (Acute) Alcohol intoxication (Acute) Laceration of spleen (Acute) Fracture of left eleventh rib (Acute) Fracture of left tenth rib (Acute) Fall from height of greater than 3 feet (Acute) Infrapatellar bursitis of both knees (Acute) Overweight (Acute) Medical History Hypertension Hyperlipidemia Surgical History No significant past surgical history Family History Mother No problems noted. Father No problems noted. Sister No problems noted. Brother No problems noted. Maternal Grandfather , 78 No problems noted. Paternal Grandfather No problems noted. Maternal Grandmother No problems noted. Paternal Grandmother No problems noted. Social History Smoking/Tobacco Use Status: Current every day Tobacco Type: cigarettes Tobacco: How many years used: 10 Quit status: has quit before Second Hand Exposure: Yes Smoking risk assessment performed?: Yes Alcohol Intake: current Alcohol Intake frequency: a few times a week Alcohol type: beer, wine and hard liquor Drug use: Socially Substance use type: marijuana Do you feel safe at home: Yes Do you feel safe in your relationship?: Yes Meds Allergies and Home Medications Allergies Allergy/AdvReac Type Severity Reaction Status Date / Time No Known Allergies Allergy Verified 10/01/24 22:52 Home Medications ?Medication ?Instructions ?Recorded ?Confirmed ?Type lisinopril 20 mg tablet 20 mg PO DAILY #90 tabs 03/20/24 10/01/24 Rx cyclobenzaprine 10 mg tablet 10 mg PO ONCE 10/01/24 10/01/24 History Exam Const General: cooperative and no acute distress Nutritional Appearance: average body habitus Orientation: alert, awake and oriented x3 HENMT Head: normal to inspection, no palpable skull fracture, no contusions and no scalp lesions Ears: hearing grossly normal bilaterally Eyes General: appearance normal, both eyes and all related structures Visual Stevenson: normal visual stevenson by confrontation Neck Neck: normal visual inspection, full ROM, no lymphadenopathy and supple Other: no tenderness, normal range of motion. Chest Chest: normal inspection of the chest Resp Effort & Inspection: normal respiratory effort and able to speak in complete sentences Auscultation: clear to auscultation bilaterally Cardio Rate: regular rate Rhythm: regular rhythm Heart Sounds: S1 normal and S2 normal GI Inspection: non-distended Palpation: soft, no guarding and tender Auscultation: normal bowel sounds Back/Spine/Pelvis Back: CVA tenderness (left) and ecchymosis (left flank with contusion) Pelvis: no pain with anterior-posterior compression Results Imaging Abdomen CT scan report/results: report reviewed and image reviewed CT scan - chest: report reviewed and image reviewed CT scan - pelvis: report reviewed and image reviewed Labs 10/02/24 01:44 10/01/24 23:40 Labs: Laboratory Results - last 24 hr 10/01/24 10/01/24 22:56 23:40 WBC 7.17 RBC 4.74 Hgb 16.3 Hct 43.5 MCV 92 MCH 34.4 H MCHC 37.5 H RDW 13.1 Plt Count 346 MPV 9.3 Immature Gran % 0.0 Neutrophils % 40.0 Band Neutrophils % 1 Lymphocytes % 53.0 Monocytes % 4.0 Eosinophils % 1.0 Basophils % 1.0 Nucleated RBC % 0.0 Absolute Neutrophils 2.94 Absolute Lymphocytes 3.80 H Absolute Monocytes 0.29 Absolute Eosinophils 0.07 Absolute Basophils 0.07 RBC Morphology Normal Sodium Cancelled 130 L Potassium Cancelled 3.5 Chloride Cancelled 95 L Carbon Dioxide Cancelled 19.0 L Anion Gap Cancelled 16.0 H BUN Cancelled 17 Creatinine Cancelled 1.0 Est GFR (CKD-EPI 2020) Cancelled 103.84 Glucose Cancelled 190 H Calcium Cancelled 6.8 L Total Bilirubin Cancelled 1.1 H AST Cancelled 700 H ALT Cancelled 350 H Alkaline Phosphatase Cancelled 158 H Total Protein Cancelled 6.8 Albumin Cancelled 3.4 Lipase Cancelled 63 Ethyl Alcohol Cancelled 210.6 H Last Vital Signs Pulse 105 H 10/01/24 23:50 Resp 23 10/01/24 23:50 BP 155/119 H 10/01/24 23:46 Pulse Ox 98 10/01/24 23:50 Time Spent Time spent with Patient: >75 minutes Time was spent: preparing to see the patient(eg.review tests), obtaining and/or reviewing separately otained hiistory, referring, communicating with other health child care attendant, indepentently interpreting results, counseling the patient and care coordination
[2024-10-02 01:24] LABS: Lab Add On Test DONE
--- NOTE | 2024-10-02 01:25 | NUR.NOTE ---
This insurance underwriter sales asked pt about the timing from his last drink in regards to safe and appropriate pain management and transparency in handoff. pt was very defensive, sending significant other from the room requesting a private conversation. This insurance underwriter sales apologized for the approach and explained the significance of the question and further reviewed the likelihood/ probability of the patient going through withdrawl while hospitalized. Pt declined habitual drinking during the week days with today's event being out of the norm. Pt stated that his last alcoholic beverage was a couple beers while fishing around 1600 with his cousin. This insurance underwriter sales thanked him for the information and reiterated the importance due to the dangers of mixing opioid medications and alcohol.
[2024-10-02 01:44] LABS: HDL Cholesterol 30 mg/dL (>or=40)
[2024-10-02 01:51] LABS: HCT 42.3 % (40.0-50.0); HGB 15.6 g/dL (13.5-17.5)
[2024-10-02] MEDS: Lactated Ringers 1,000 ML 100 ML IV (01:58)
[2024-10-02] MEDS: Acetaminophen 500 MG TAB 1000 MG PO (02:01)
[2024-10-02 02:22] LABS: Cholesterol 507 mg/dL (<200); Triglyceride 3595 mg/dL (<150)
[2024-10-02 02:34] LABS: LDL CHOLESTEROL 109 mg/dL (<100)
[2024-10-02 02:41] LABS: Bilirubin Negative (Negative); Blood Small (Negative); Clarity Clear (Clear); Glucose Negative (Negative); Ketones Negative (Negative); Leukocyte Esterase Negative (Negative); Nitrite Negative (Negative); Urobilinogen 0.2 mg/dL (Up to 0.2)
[2024-10-02] MEDS: HYDROmorphone 2 MG/ML SYR 1 MG IVP (02:45)
[2024-10-02 02:51] LABS: Bacteria Rare HPF (Negative); C & S Indicated? No; Casts 0-2 Coarse Granular LPF (Negative); Crystals Negative HPF (Negative); Epithelial Cells Negative HPF (Negative); Mucus Trace (Negative)
[2024-10-02 02:59] LABS: *AMPHETAMINES SCREEN URINE Negative (Negative); *BARBITURATES SCREEN URINE Negative (Negative); *BENZODIAZEPINES SCREEN URINE Negative (Negative); Cannabinoids THC Negative (Negative); Cocaine Screen,Urine Negative (Negative); METHADONE URINE SCREEN Negative (Negative); OPIATES URINE SCREEN Positive (Negative)
[2024-10-02 03:01] LABS: Tricyclic Antidepressants Negative (Negative)
[2024-10-02] MEDS: Lidocaine 2% Jelly 11 ML SYR (03:55)
--- NOTE | 2024-10-02 04:28 | NUR.NOTE ---
pt had minimal urine output after 1 liter of LR, bladder scan performed, pt retaining > 625 ml of urine without ability to void. Dr. Roberts ordered an indwelling catheter which pt initially refused requesting additional attempt to void at bed side. HR increased to 180 on the monitor, pt states he was asymptomatic and without pain.pt was instructed to sit down by this television script writer. pt continued to refuse catheter insertion even after many attempts of educating the pt on the purpose of the catheter in this clinical setting. Pt recanted his decision to refuse the catheter after discussing risk and benefit with significant other at bedside. This television script writer then inserted catheter under aseptic technique with minimal complaints from pt. 675 ml of straw colored urine drained from bladder, VS unchanged MD Aware.
--- NOTE | 2024-10-02 07:00 | DI.CT_ITS ---
Exam(s) CT THORACIC LUMBAR SPINE REC EXAM: CT THORACIC LUMBAR SPINE REC CLINICAL HISTORY: trauma TECHNIQUE: COMPARISON: CT CT CHEST/ABD/PEL W from 10/01/2024 FINDINGS: THORACIC SPINAL COLUMN: No evidence of fracture, listhesis, nor disc space narrowing. Facet joints unremarkable. No malalig nment. LUMBOSACRAL SPINAL COLUMN: No evidence of fracture nor listhesis nor pars defects. All the disc spaces exhibit normal height. Facet joints unremarkable. No malalignment. No sacral fractures evident. IMPRESSION: No significant osseous findings in the thoracic and lumbosacral spinal columns.
== END 2024-10-02 04:58 | disposition short-term general hospital (02) ==
LOC: ER 10-02 02:29
PROVIDERS: Emergency Provider Emergency Medicine; PCP Nurse Practitioner Family
DX: S36.032A Major laceration of spleen, initial encounter; R79.89 Other specified abnormal findings of blood chemistry; F10.929 Alcohol use, unspecified with intoxication, unspecified; W17.89XA Other fall from one level to another, initial encounter; S22.32XA Fracture of one rib, left side, initial encounter for closed fracture
CPT/HCPCS: 99291; 96374; 96375; 96376; 51702; 74177; 80053; 80061; 80307; 83690; 83721; 85027; 86850; 86900; 86901; 96361; 71260; 80320; 81003; 81015; 85014; 85018; 85025; 86870; 86880; J1171; J2270; J3490

== ENCOUNTER 2024-11-07 22:31 | Inpatient (IN) | payer OTHER, SELFPAY ==
--- NOTE | 2024-11-07 18:30 | HPE_ITS ---
Date of service: 11/07/24 Time of Service: 23:00 Assessment and Plan Assessment and plan (1) Comfort measures only status: Status: Acute Assessment and plan: - As described in detail in HPI, patient has been transferred back from [facility] after experiencing traumatic brain injury resulting from aspiration and CODE BLUE - Brain was diagnosed as EEG showed severe slowing and MRI showed signs of an anoxic brain injury - Patient's family decided to transition to comfort measures only - Continue Dilaudid drip at 0.5 mg/h with 0.5 mg bolus every 15 minutes - Continue 10 mg IV Haldol every 6 hours as needed that he had been given at [facility] - Will add on 1 to 2 [facility] History of Present Illness History of Present Illness Chief Complaint: Transfer for FABRICATION WELDER Narrative: 29-year-old gentleman with no past medical history who initially presented to [facility] late on the evening of 10/01/2024 and experienced a traumatic fall and was subsequently transferred to [facility] trauma who had an unfortunate course resulting in traumatic brain injury and has been transferred back to [facility] for comfort care. Upon initial arrival to [facility] on the evening of 10/01/2024 patient stated that he was intoxicated and fell out of a second story door not realizing there were no stairs landing on a short wall onto his abdomen. Patient was seen by surgeon Dr. Roberts and was found to have grade 4 blunt splenic injury with parenchymal pseudoaneurysm or blush and recommended patient be transferred to tertiary care center trauma. At this time he did not have any signs or symptoms concerning for blunt force trauma to the head and was ANO x 4. Patient was ultimately transferred to [facility] where he had emergent splenectomy with a drain placed. He had initially had been recovering well but was noted to be somewhat hypertensive and tachycardic with some electrolyte derangements and resulting abdominal distention and GLADIS. On 10/04/2024 patient's mentation began to decline he was noted as being hyponatremic with worsening GLADIS and lactic acid though all with unclear cause. It was later discovered that the patient was a heavy drinker he was started on phenobarbital however patient aspirated and coded though ROSC was obtained. Patient was transferred to the ICU however, his neurologic function did not return, with EEG showing severe slowing and MRI showing anoxic brain injury. Ultimately, patient's family decided to transition patient to comfort measures only, and asked that he be transferred back to [facility] where his family would be closer to be able to visit. Review of Systems All systems reviewed & are unremarkable except as noted in HPI and below PFSH All Active Problems (Updated 11/07/24 @ 23:08 by Jose Mason MD) Comfort measures only status (Acute) Injury of spleen (Acute) Infrapatellar bursitis of both knees (Acute) Overweight (Acute) Medical History Hypertension Hyperlipidemia Surgical History No significant past surgical history Family History Mother No problems noted. Father No problems noted. Sister No problems noted. Brother No problems noted. Maternal Grandfather , 78 No problems noted. Paternal Grandfather No problems noted. Maternal Grandmother No problems noted. Paternal Grandmother No problems noted. Social History Smoking/Tobacco Use Status: Current every day Tobacco Type: cigarettes Tobacco: How many years used: 10 Quit status: has quit before Second Hand Exposure: Yes Smoking risk assessment performed?: Yes Alcohol Intake: current Alcohol Intake frequency: a few times a week Alcohol type: beer, wine and hard liquor Drug use: Socially Substance use type: marijuana Do you feel safe at home: Yes Do you feel safe in your relationship?: Yes Meds Allergies and Home Medications Allergies Allergy/AdvReac Type Severity Reaction Status Date / Time No Known Allergies Allergy Verified 10/01/24 22:52 Home Medications ?Medication ?Instructions ?Recorded ?Confirmed ?Type lisinopril 20 mg tablet 20 mg PO DAILY #90 tabs /09/1610/01/24 Rx cyclobenzaprine 10 mg tablet 10 mg PO ONCE 10/01/24 History Exam Narrative Exam Narrative: Young gentleman laying in bed in no acute distress, tracheotomy in place, unable to respond to verbal or painful stimuli Time Spent Time spent with Patient: >75 minutes Time was spent: preparing to see the patient(eg.review tests), obtaining and/or reviewing separately otained hiistory, ordering medications,tests, procedures, referring, communicating with other health day care director, indepentently interpreting results, counseling the patient and care coordination
[2024-11-07] MEDS: HYDROmorphone 50 MG in Normal Saline 245 ML IV_INF (22:48)
--- NOTE | 2024-11-07 23:19 | RESPIRATORY ---
Pt received w/ 8.0 shiley cuff deflated, pmv in place. Pt on cool mist trach collar 8L 28%. Sx set up at bedside. Comfort measures in place.
[2024-11-07] MEDS: LORazepam 20 MG/10 ML VIAL IV/SC (23:36)
[2024-11-08] MEDS: LORazepam 20 MG/10 ML VIAL IV/SC ×5 (02:56→22:49)
--- NOTE | 2024-11-08 08:24 | W.PM.PROGNOT ---
Date of Service Date of service: 11/08/24 Time of Service: 08:24 Assessment and Plan Assessment and plan (1) Comfort measures only status: Status: Acute Assessment and plan: As detailed in the HPI, the patient was transferred back from [facility] following a traumatic brain injury caused by aspiration and a CODE BLUE event. Brain was diagnosed based on EEG findings showing severe slowing and MRI evidence of an anoxic brain injury. The patient?s family has decided to transition to comfort measures only. The following plan has been made: Continue the Dilaudid drip at 0.5 mg/h with 0.5 mg boluses every 15 minutes. Titration orders IF s/s of pain noted. Continue 10 mg IV Haldol every 6 hours as needed, as administered at [facility]. Add 1 to 2 mg IV Ativan as needed for additional comfort. Palliative consult - will be seen on Wednesday Subjective Subjective Patient reports: no new complaints Interval history since last seen: Supine in bed - unresponsive Exam Narrative Exam Narrative: The patient is unresponsive to both painful and verbal stimuli. A tracheostomy is in place, and the patient is on room air. The patient remains calm and relaxed, with no visible signs of discomfort, pain, or distress. There is no facial grimacing, restlessness, or agitation observed, and he does not react to touch or movement. His vital signs are stable, and there is no evidence of pain in his posture or facial expression. Time Spent with Patient Time Spent with Patient: 35-49 minutes Time was spent: ordering medications,tests, procedures, counseling the patient and care coordination
--- NOTE | 2024-11-08 13:23 | CHAPLAIN ---
Anselmo was transferred here from [facility] last night. He was at [facility] following a two-story fall, first on a vent, and now breathing on his own with a trach. Anselmo's accident happened five weeks ago and in the hospital he had a heart attack, and has not been resposive. He is on comfort measures here. I visited with his mom, Elma, this morning. She is grateful to be closer to her home, in [place], and be able to be with Anselmo, and return home when needed. I explained my role, offered support and let her know that websphere commerce architect is available 16/11. Anselmo's father, who lives out of the area, is Gnosticism and we talked about if Anselmo or his dad would want Anselmo to have anointing of the sick. Elma said she would let us know if they'd like the have Fr. Chowdhury come in. Elma is not connected to a sony community, but finds spiritual closeness to a higher power when she is in nature. I will continue to visit. Anselmo is related to a few [facility] employees, Saba Garcia RN, on Med/surg, GHISLAINE Ibrahim, in the OR and Sofie Blandon, administrative underwriter.
[2024-11-08] MEDS: Scopolamine 1 MG/3 DAYS PATCH TD (14:20)
[2024-11-08 15:11] VITALS: TEMP 37
--- NOTE | 2024-11-08 15:36 | CMPROGNOTE_ITS ---
Date of service: 11/08/24 Time of Service: 15:36 Care Management Progress Note Progress Note Text Progress Note Text: Anselmo was transferred from [facility] yesterday for comfort care. He is an unfortunate young man who suffered a fall on 10/01. He was transferred to [facility] at that time for surgery, for his splenic laceration, he was still alert and oriented. Anselmo aspirated on 10/05 and had a cardiac arrest. He was resuscitated, but suffered an anoxic brain injury, and after testing was found to be brain . Anselmo has had many visitors today. His friends and family are very happy to have him close to home. All reports are that Anselmo is a great warner who gets bridgette g with everyone. CM had the chance to speak with Elma, Anselmo's mom. She is handling things as well as can be expected. Elma met with the master fire control technician today and stated that she has lots of supports who are helping her, and she is pleased that she can visit more easily. Discharge Plan: Anselmo is here at [facility] for Comfort Care. It is believed at this time that he will remain her until the end of his life. CM will continue to follow and to support the family as able. Social Determinants of Health Screening Will the Patient Participate in the Screening?: Unable to obtain
[2024-11-08] MEDS: Normal Saline Flush 10 ML SYR ×2 (20:36→22:48)
--- NOTE | 2024-11-08 21:03 | RESPIRATORY ---
Addendum entered by Terri Brown 11/08/24 21:45: 2130 - Able to sx trach for copious amounts of thick tenacious secretions. Still unable to do oral care as pt's teeth clench shut when attempted. Mouth moisturizer used. Original Note: Upon arrival to pt's room pt is grimacing and sweating profusely. While suctioning trach pt is rolling his body away, grimacing and posturing. Unable to do oral care as pt is also clenching his teeth shut. Made RN aware of findings, and asked for nursing to increase medication as pt seems very uncomfortable. RN gave IV ativan, pt remains looking uncomfortable. As I am still unable to do appropriate trach and oral care with pt, requested the medication be increased. RN at bedside with Nursing properties supervisor.
[2024-11-09] MEDS: LORazepam 20 MG/10 ML VIAL IV/SC ×9 (03:10→22:52)
[2024-11-09] MEDS: Normal Saline Flush 10 ML SYR (05:34)
[2024-11-09] MEDS: Normal Saline Flush 10 ML SYR IVP ×10 (06:41→22:52)
[2024-11-09] MEDS: Glycopyrrolate 0.2 MG/1 ML VIAL IVP ×3 (06:42→18:47)
--- NOTE | 2024-11-09 06:46 | W.PM.PROGNOT ---
Date of Service Date of service: 11/09/24 Time of Service: 14:04 Assessment and Plan Assessment and plan (1) Comfort measures only status: Status: Acute Assessment and plan: Continue [employer] WAF[employer] MARKER orders As per HPI, the patient was transferred back from [facility] following a traumatic brain injury caused by aspiration and a CODE BLUE event. Brain was diagnosed based on EEG findings showing severe slowing and MRI evidence of an anoxic brain injury. The patient?s family has decided to transition to comfort measures only. The following plan has been made: Dilaudid drip at 1.5 mg/h with 0.5 mg boluses every 15 minutes; patient remained tachycardic and tachypneic. Will increase basal rate to 2.5 Mg per hour. Titration orders IF s/s of pain noted. Continue 10 mg IV Haldol every 6 hours as needed, as administered at [facility]. Change lorazepam to 2 mg every 2 hours scheduled as patient is reported to have had multiple episodes of seizure-like activity with multiple doses of as needed lorazepam given Palliative consult pending-to be seen on 11/09/2024 Subjective Subjective Patient reports: other (Multiple episode of seizure activity observed when stimulated by family members with frequent PRN Lorazepam given); denies voiding w/o difficulty, nausea or vomiting Exam Narrative Exam Narrative: 29-year-old male patient on [employer] MARK[employer], resting in bed, eyes are closed with rapid eye movement detected upon verbal and tactile stimulation but no seizure activity, S1-S2 tachycardic, clear lungs respiratory rate of 24/min, abdomen is nonacute Time Spent with Patient Time Spent with Patient: >50 minutes Time was spent: preparing to see the patient(eg.review tests), obtaining and/or reviewing separately otained hiistory, ordering medications,tests, procedures, referring, communicating with other health clinical care manager, indepentently interpreting results, counseling the patient and care coordination
--- NOTE | 2024-11-09 12:54 | PDOC.CMPRO ---
Date of service: 11/09/24 Time of Service: 12:56 Care Management Progress Note Progress Note Text Progress Note Text: Anselmo has been surrounded by friends and family today. His mom, Elma, has been constantly at the bedside. She is so pleased to be closer to home so that both she and Anselmo can be supported. Anselmo appears comfortable. His hydromorphone was increased today to 1.5 mg/hour. Discharge Plan: Anselmo is here at [facility] for Comfort Care. It is believed at this time that he will remain here until the end of his life. will continue to follow and to support the family as able. Social Determinants of Health Screening Will the Patient Participate in the Screening?: Unable to obtain
[2024-11-09] MEDS: LORazepam 20 MG/10 ML VIAL IVP (12:59)
[2024-11-09] MEDS: HYDROmorphone 50 MG in Normal Saline 245 ML 12.5 MG IV_INF (17:38)
[2024-11-10] MEDS: Normal Saline Flush 10 ML SYR IVP ×11 (00:37→20:58)
[2024-11-10] MEDS: LORazepam 20 MG/10 ML VIAL IV/SC ×12 (00:37→22:40)
[2024-11-10] MEDS: Glycopyrrolate 0.2 MG/1 ML VIAL IVP ×4 (02:43→20:41)
[2024-11-10 08:40] VITALS: TEMP 36
--- NOTE | 2024-11-10 11:17 | PCNE_ITS ---
Date of service: 11/10/24 Time of Service: 10:00 History of Present Illness Narrative: Mr. Briones is a 29 y/o M currently hospitalized on comfort directed care s/p a traumatic brain injury resulting in brain ; present today mother Charu and friend Layton Briones fell off the second story of a building on 10/01/24 resulting in internal injuries, transferred to [facility]; on 10/05 he had an aspiration event resulting in cardiac arrest at [facility] which ultimately ended in a traumatic brain injury with brain . He was transferred to [facility] to be closer to friends and family on 11/07/24, on comfort directed care. - Mom reports he had damage to his lungs and continues to have a pancreatic leak Pain: he is on a hydromorphone pump, current basal rate of 2.5mg/hr, this was increased from 1.5mg/hr yesterday w/good effect; he has not required bolus dosing. - Mom reports some signs of pain w/grimace, tears and sobbing, mostly around brain storm events. he is comfortable at this time; suctioning has also has caused discomfort Respiratory: he has a trach and is receiving room air w/humidity; increased secretions noted, started on a scop patch yesterday w/good effect; has required intermittent deep suctioning to clear secretions, this makes him uncomfortable; has had some periods of apnea up to 4-5s; yesterday did have episodes of tachycardia/tachypnea, this has resolved today; oral care q2h Neurological: was having frequent episodes of brain storming, where he would tense up, shake, open eyes; extremely distressing to watch; lorazepam 2mg IV changed to scheduled q2h w/improved effect, reduced these episodes; - Mom would like to reduce the episodes as much as possible, eliminate if possible; occurred twice yesterday; looks like torture; they were occurring every3'amanda hours prior to scheduled meds q2h; happy w/efficacy Fever: was feeling and appearing hot intermittently; no apap ordered - Mom brought in fan yesterday as he was hot and sweating Urine: continues to make urine, 550ccs this morning; urine is cloudy, increased cloudiness compared to yeseterday; smith catheter in place; - Mom reports, last received IVF on Wednesday11/05/24 Stool: rectal tube in place, reduced stool, less than 200mL per report; - Mom reports last received artificial nutrition, via N[facility], on Wednesday11/05/24 Skin: repositioning throughout the day; no edema or skin concerns - Mom reports color has gone ashen a few times, and returned to his normal; he is having some skin peeling s/p edema at [facility], edema resolved Social: Anselmo was a social person, several best friends, all of which have been wonderfully supportive during this terrible time; they are all visiting often, plan for more visitors today; Elma has been spending most of her time in hospital, is now returning home at night, getting support from her , she lives in [place]; his brother and dad live in [place], they had been making trips back and forth initially, they will now stay in [place] and return for services post Anselmo's ; Nuha his aunt has also been spending time ACP: despite this being a terrible and traumatic experience, Elma is feeling comfortable w/current plan of care and is feeling well supported by family and Anselmo's wonderful support system - Goal is to reduce any form of suffering or distress; avoid suctioning, brain storms; preference for increased sedation vs distressing events - she is aware that his life expectancy is difficult to predict Assessment and Plan Assessment and plan (1) Brain : Status: Acute (2) Comfort measures only status: Status: Acute (3) Injury of spleen: Status: Acute (4) End of life care: Status: Acute Assessment and plan: Anselmo will remain at [facility] through EOL; the biggest goal should be focused on providing comfort and avoiding additional suffering. All sxs should be treated immediately and seriously. Pain: continue hydromorphone pump, current rate 2.5mg/hr appears to be controlling current pain; recommend bolus rate stay near 50% of basal rate; bolus doses prior to care, peg repositioning, bolus w/any sign of pain: grimace, tears, jerking, brain storm activity, tachypnea/tachycardia; if requiring more than 2 bolus doses in one hour, outside of for repositioning, recommend increasing basal rate per parameters by 0.5mg/hr Respirations: RT to reduce humidity today w/goal of drying secretions up more; continue scop patch w/good effect; recommend adding glycopyrralate, atropine and hyosciamine from [employer] order set for PRN; goal to avoid suctioning as able, consider not doing at all, respiratory secretions w/resp rattle/ rattle are not unexpected and deep suctioning/suctioning should be considered invasive at this time; treat tachypnea with bolus of hydromorphone - apnea episodes lasting 5s at this time Neurological/brain storms: these should be avoided at all cost if able; improved w/lorazepam 2mg q2h scheduled, continue to monitor; recommend additional lorazepam 2mg q1h PRN ordered in anticipation; consider Haldol 10mg q6h PRN, recommend change Haldol from IM to IVP; treat brain storm w/bolus of hydromorphone in addition to lorazepam PRN dose Fever: treat w/scheduled apap IV, recommend added to order set; anticipate ongoing fevers Bowels/Urine: recommend remove rectal tube as able, anticipate intermittent incontinence of bowels, however the rectal tube should be considered invasive and avoided if able. continues to make appropriate urine, last IVF administered 5 days ago, anticipate urine output will decline w/body decline; urine is now cloudy, may be early signs of infection or concentration, either way, no interventions required at this time reviewed above recommendations with hospitalist (5) ACP (advance care planning): Status: Acute Assessment and plan: reviewed with Elma current POC, anticipated s/sxs as Primos body transitions to EOL reviewed sxs management goals, avoid any distressing events for Anselmo, preference for sedation w/medications vs repeated brain storms, suctioning, etc reviewed medication recommendations for comfort directed care, anticipatory needs and next steps reviewed life expectancy of hours to days, less likely weeks; anticipate Anselmo will not today d/t current function, however this is hard to predict given his age, recent IVF/art nutrition, and other unknowns; Elma is comfortable with this spent 20m w/ACP Unfortunately, palliative care is not available over the weekend. will alert hospice rehabilitation counsellor provider. if sxs not managed encourage hospitalist to reach out to hospice for assistance w/sxs management as needed. Review of Systems Narrative: as per HPI PFSH All Active Problems (Updated 11/10/24 @ 11:50 by Teresa Pearson NP) Brain (Acute) ACP (advance care planning) (Acute) End of life care (Acute) Comfort measures only status (Acute) Injury of spleen (Acute) Infrapatellar bursitis of both knees (Acute) Overweight (Acute) Medical History Hypertension Hyperlipidemia Surgical History No significant past surgical history Family History Mother No problems noted. Father No problems noted. Sister No problems noted. Brother No problems noted. Maternal Grandfather , 78 No problems noted. Paternal Grandfather No problems noted. Maternal Grandmother No problems noted. Paternal Grandmother No problems noted. Social History Smoking/Tobacco Use Status: Unknown Tobacco: How many years used: 10 Quit status: has quit before Second Hand Exposure: Yes Smoking risk assessment performed?: Yes Details: Pt unable to answer Additional Social history: Pt unable to answer Exam Narrative Exam Narrative: General: 29 y/o M lying in hospital bed; unresponsive; no grimace, no groan, no movement; friend and mother at bedside; comfort cart in room HEENT; normocephalic, atraumatic Resp: trach in place w/mask over supplying humid air, on RA; resp vary from even and unlabored to periods of apnea no longer than 5s w/shallow quick breaths after; no resp distress noted; no audible wheezes or rattle noted Card: radial/DP pulses 2+; HR in 84, even and regular; extremeties warm, all 4 Urine: 550cc cloudy yellow urine in smith cath bag Skin: peeling noted on toes and fingers, no edema Time Spent Time Spent with Patient Time Spent(min): 75
[2024-11-10 11:41] VITALS: TEMP 37
[2024-11-10] MEDS: ACETAMINOPHEN 1,000 MG/100 ML BAG 400 MG IV ×2 (12:40→17:12)
[2024-11-10] MEDS: HYDROmorphone 50 MG in Normal Saline 245 ML 12.5 MG IV_INF (14:29)
--- NOTE | 2024-11-10 14:54 | CHAPLAIN ---
I checked in with Anselmo's mom, Elma, this morning. She was asking for an iPad to play music for Anselmo and we tracked one down for her. Teresa Pearson, DESIGN ARCHITECT from Palliative Care,met with Elma his morning. There have been lots of family and friends into to visit Anselmo and support Elma. Teresa's Pallaitive Care note states that she believes Anselmo's prognosis if for hours to days, not days to weeks, but as always that is difficult to predict, she wrote. Anselmo was in the ED here about five weeks go following a two-story fall, he was transferred to [facility] where he had a cardiac arrest. He is now on comfort measures and was transferred back here to be closer to home. He lives in [place] and Elma lives in [place].
--- NOTE | 2024-11-10 16:48 | CMPROGNOTE_ITS ---
Date of service: 11/10/24 Time of Service: 16:49 Care Management Progress Note Progress Note Text Progress Note Text: CM met briefly with Elma today. There were again many visitors throughout the day. Elma met with Palliative Care today. She stated that she feels much better about things now. She feels that she has a much better understanding of what is happening, what to expect, and what to report to nursing to maintain Anselmo's comfort. Hydromorphone dose was increased today from 1.5mg/h to 2/5mg/h. Elma feels that Anselmo looks more comfortable on this dose. Discharge Plan: Anselmo is here at [facility] for Comfort Care. It is believed at this time that he will remain here until the end of his life. CM will continue to follow and to support the family as able. Social Determinants of Health Screening Will the Patient Participate in the Screening?: Unable to obtain
[2024-11-10] MEDS: Hyoscyamine 0.125 MG SL/ORAL/CHEW SL ×2 (17:12→20:41)
--- NOTE | 2024-11-10 17:45 | PGE_ITS ---
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 Brain was diagnosed based on EEG findings showing severe slowing and MRI evidence of an anoxic brain injury. The patient?s family has decided to transition to comfort measures only. The following plan has been made: * Dilaudid drip at 2.5 mg/h with 1 mg boluses every 15 minutes; patient remained tachycardic. Will increase basal rate to 3.5 Mg per hour. Titration orders IF s/s of pain noted. * Continue 10 mg IV Haldol every 6 hours as needed, as administered at [facility]. * Ongoing lorazepam to 2 mg every 2 hours scheduled with PRN dose available if recurrent e episodes of seizure-like activity Palliative consult completed : please read notes Suction PRN when secretions are visible otherwise follow family lead as they might refuse this intervention if deep suctioning becomes necessary d/t increased production of secretions Considering furosemide IV- if flush pulmpnary edema is suspected Discuss tiotropium and similar drugs if no improvement in secretion control with adjusted medicine regimen Antibiotics not an option in the setting of infection Discussed with Dr. Salinas Subjective Subjective Patient reports: other (No further episodes of seizure activity VS autonomic activity observed when stimulated by family members with frequent on IRAM Lorazepam); denies voiding w/o difficulty, nausea or vomiting Exam Narrative Exam Narrative: 29-year-old male patient on MAINFRAME PROGRAMMER, resting in bed, eyes are closed no further rapid eye movement detected upon verbal and tactile stimulation, no seizure activity or pond reflex, S1-S2 remains tachycardic, bilateral coarse crachkles RR< 20/min, abdomen is nonacute Time Spent with Patient Time Spent with Patient: >50 minutes Time was spent: preparing to see the patient(eg.review tests), obtaining and/or reviewing separately otained hiistory, ordering medications,tests, procedures, referring, communicating with other health primary care nurse practitioner, indepentently interpreting results, counseling the patient and care coordination
[2024-11-10 19:58] VITALS: TEMP 37
[2024-11-10 20:00] VITALS: TEMP 36.9
[2024-11-11] MEDS: ACETAMINOPHEN 1,000 MG/100 ML BAG 400 MG IV ×5 (00:09→23:56)
[2024-11-11] MEDS: Glycopyrrolate 0.2 MG/1 ML VIAL IVP ×6 (00:13→22:08)
[2024-11-11] MEDS: Normal Saline Flush 10 ML SYR ×2 (00:14→20:50)
[2024-11-11] MEDS: LORazepam 20 MG/10 ML VIAL IV/SC ×11 (00:34→22:35)
[2024-11-11] MEDS: Hyoscyamine 0.125 MG SL/ORAL/CHEW SL ×6 (01:58→22:08)
[2024-11-11] MEDS: Normal Saline Flush 10 ML SYR IVP ×5 (06:44→20:51)
[2024-11-11 08:09] VITALS: TEMP 37
[2024-11-11 11:11] LABS: EPI 027-NAP1-B1 PRESUMPTIVE NEGATIVE
[2024-11-11] MEDS: LORazepam 20 MG/10 ML VIAL IVP (11:43)
[2024-11-11] MEDS: HYDROmorphone 50 MG in Normal Saline 245 ML 17.5 MG IV_INF (13:16)
[2024-11-11 14:04] VITALS: TEMP 37
[2024-11-11] MEDS: Scopolamine 1 MG/3 DAYS PATCH TD (15:24)
--- NOTE | 2024-11-11 18:03 | PGE_ITS ---
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 Brain was diagnosed based on EEG findings showing severe slowing and MRI evidence of an anoxic brain injury. The patient?s family has decided to transition to comfort measures only. The following plan has been made: * Dilaudid drip at 3.5 mg/h with 1 mg boluses every 15 minutes; improved tachycardia, medicate with position change * Ongoing 10 mg IV Haldol every 6 hours as needed, as administered at [facility]. * Continue lorazepam to 2 mg every 2 hours scheduled with PRN dose available if recurrent e episodes of seizure-like activity Palliative consult completed and plan discussed with provider: Note is available Secretions appears to be more controlled with current medicine management?will continue Suction PRN when secretions are visible otherwise follow family lead as they might refuse this intervention if deep suctioning becomes necessary d/t increased production of secretions Considering furosemide IV- if flush pulmonary edema is suspected Discuss tiotropium and similar drugs if no improvement in secretion control with adjusted medicine regimen Antibiotics not an option in the setting of any developing infection Discussed with Dr. Salinas Subjective Subjective Patient reports: no new complaints and other (Appears comfortable no further seizure-like activity no vomiting nausea secretions appears to be controlled) Exam Narrative Exam Narrative: 29-year-old male patient on ASSISTANT AUTO CENTER MANAGER, resting in bed, eyes are closed no further rapid eye movement detected upon verbal and tactile stimulation, no seizure activity, improved tachycardia, bilateral coarse RR< 20/min, abdomen is nonacute, no mottling to the extremities Objective Laboratory Results - last 24 hr 11/11/24 10:23 Stl C.difficile Tox PCR Negative Time Spent with Patient Time Spent with Patient: >50 minutes Time was spent: preparing to see the patient(eg.review tests), obtaining and/or reviewing separately otained hiistory, ordering medications,tests, procedures, referring, communicating with other health hourly caregiver, indepentently interpreting results, counseling the patient and care coordination
[2024-11-11 21:30] VITALS: TEMP 37
[2024-11-12] VITALS (8 sets, daily range): TEMP 37–38.1
[2024-11-12] MEDS: LORazepam 20 MG/10 ML VIAL IV/SC ×7 (01:16→14:37)
[2024-11-12] MEDS: Glycopyrrolate 0.2 MG/1 ML VIAL IVP ×6 (02:04→22:16)
[2024-11-12] MEDS: Hyoscyamine 0.125 MG SL/ORAL/CHEW SL ×6 (02:05→22:16)
[2024-11-12] MEDS: HYDROmorphone 50 MG in Normal Saline 245 ML 17.5 MG IV_INF ×2 (03:42→19:42)
[2024-11-12] MEDS: ACETAMINOPHEN 1,000 MG/100 ML BAG 400 MG IV ×4 (05:47→23:55)
[2024-11-12] MEDS: Normal Saline Flush 10 ML SYR IVP ×4 (08:57→18:35)
--- NOTE | 2024-11-12 11:03 | W.PM.PROGNOT ---
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 Brain was diagnosed based on EEG findings showing severe slowing and MRI evidence of an anoxic brain injury. The patient?s family has decided to transition to comfort measures only. The following plan has been made: Dilaudid drip at 3.5 mg/h with 1 mg boluses every 15 minutes; improved tachycardia, medicate with position change Ongoing 10 mg IV Haldol every 6 hours as needed, as administered at [facility]. Continue lorazepam to 2 mg every 2 hours scheduled with PRN dose available if recurrent e episodes of seizure-like activity adjust meds as needed. Palliative consult completed Antibiotics not an option in the setting of any developing infection Discussed with Dr. Salinas Subjective Subjective Interval history since last seen: remains unresponsive and in no distress Exam Narrative Exam Narrative: White male is resting quietly on his bed eyes closed family at bedside respirations even and unlabored and is pale warm dry Objective Laboratory Results - last 24 hr 11/11/24 10:23 Stl C.difficile Tox PCR Negative Time Spent with Patient Time Spent with Patient: 25-34 minutes Time was spent: preparing to see the patient(eg.review tests) and ordering medications,tests, procedures
[2024-11-12] MEDS: LORazepam 20 MG/10 ML VIAL IVP ×2 (16:49→22:17)
[2024-11-12] MEDS: Normal Saline Flush 10 ML SYR (21:12)
[2024-11-13] MEDS: Normal Saline Flush 10 ML SYR (00:01)
[2024-11-13] MEDS: Hyoscyamine 0.125 MG SL/ORAL/CHEW SL ×6 (01:58→21:46)
[2024-11-13] MEDS: Glycopyrrolate 0.2 MG/1 ML VIAL IVP ×6 (01:58→21:46)
[2024-11-13] MEDS: LORazepam 20 MG/10 ML VIAL IVP ×5 (03:51→17:58)
[2024-11-13 04:30] VITALS: TEMP 37
[2024-11-13] MEDS: ACETAMINOPHEN 1,000 MG/100 ML BAG 400 MG IV ×4 (05:43→23:44)
[2024-11-13] MEDS: Normal Saline Flush 10 ML SYR IVP ×7 (08:09→21:46)
[2024-11-13 09:33] VITALS: TEMP 37
[2024-11-13] MEDS: LORazepam 20 MG/10 ML VIAL IV/SC ×2 (10:18→12:17)
[2024-11-13] MEDS: HYDROmorphone 50 MG in Normal Saline 245 ML 17.5 MG IV_INF (10:38)
[2024-11-13] MEDS: Scopolamine 1 MG/3 DAYS PATCH TD (12:36)
--- NOTE | 2024-11-13 13:27 | PGE_ITS ---
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 Brain was diagnosed based on EEG findings showing severe slowing and MRI evidence of an anoxic brain injury. The patient?s family has decided to transition to comfort measures only. The following plan has been made: * Dilaudid drip at 3.5 mg/h with 1 mg boluses every 15 minutes; improved tachycardia, medicate with position change * Ongoing 10 mg IV Haldol every 6 hours as needed, as administered at [facility]. * lorazepam 1mg/hr infusion PRN dose available if recurrent episodes of seizure- like activity * adjust meds as needed. Palliative consult completed Antibiotics not an option in the setting of any developing infection Discussed with Dr. Mason Subjective Subjective Patient reports: no new complaints Exam Narrative Exam Narrative: White male is resting quietly on his bed eyes closed family at bedside respirations even and unlabored and is pale warm dry Objective Last Vital Signs Temp 38.1 C H 11/12/24 13:34 Time Spent with Patient Time Spent with Patient: 25-34 minutes Time was spent: preparing to see the patient(eg.review tests), obtaining and/or reviewing separately otained hiistory, ordering medications,tests, procedures and referring, communicating with other health rn complex care
--- NOTE | 2024-11-13 16:16 | PDOC.CMPRO ---
Date of service: 11/13/24 Time of Service: 16:16 Care Management Progress Note Progress Note Text Progress Note Text: Anselmo transferred to [facility] from a tertiary care hospital on comfort care, so he could be closer to his family and friends through the end of his life. Anselmo has been admitted X 6 days and appears comfortable. His mother Elma is present and it is very apparent that she is providing him with a great deal of love and care, she also shares that she is trying to help Jensen friends cope and she anticipates she will remain strong until he passes and then plans to give herself time and permission to grieve. Per Elma, Jensen father is flying in, she notes that he is Church, and is sure he will want Anselmo to have a blessing of some nature and she would like that too, adding that she is more spiritual than sabianism. She plans to discuss this more with his father when he gets here, then she may want need support from the [place]. Elma advises that she lives 10 minutes from the hospital and has been able to go home at night to get some rest. Family and friends continue to visit, his friend Layton lovingly wrote give them hell up there on the white board in his room. CM will continue to follow and offer support during this difficult time. Discharge Plan: Anselmo is here at [facility] for Comfort Care. It is believed at this time that he will remain here until the end of his life. CM will continue to follow and to support the family as able. Social Determinants of Health Screening Will the Patient Participate in the Screening?: Unable to obtain
--- NOTE | 2024-11-13 17:10 | PCPN_ITS ---
Date of service: 11/13/24 Time of Service: 15:00 Assessment and Plan Assessment and plan (1) Brain : Status: Acute (2) Comfort measures only status: Status: Acute (3) Injury of spleen: Status: Acute (4) End of life care: Status: Acute Assessment and plan: Anselmo will remain at [facility] through EOL; the biggest goal should be focused on providing comfort and avoiding additional suffering. All sxs should be treated immediately and seriously. Pain: continue hydormorphone pump, current rate 3.5mg/hr, appears comfortable today; bolus should reflect around 50% of basal rate; bolus increased to 1.5mg today, consider increase to 2mg pending response - order for bolus prior to suction and repositioning placed; please consider further bolus doses PRN - bolus w/signs of brain storm activity, tachypnea, tachycardia Respiratory: continue scheduled scop patch, hyosciamine, glycopyrrolate; continue intermittent suction, goal of limiting this as able, bolus of hydromorphone prior - continues to cough secretions intermittently - continue humid air w/goal of maintaining airway, if stopped concerns w/dried secretions causing airway obstruction which would cause distress/pain/suffering; - treat tachypnea w/bolus hydromorphone PRN - apnea episodes lasting up to 12s at this time Neurological/brain storms: these should be avoided at all cost if able; - starting on lorazepam 1mg/hr drip today w/bolus 2mg q30m PRN w/brain storm activity - re-evaluation tomorrow morning w/palliative MD - reviewed with family upper limits of traditional symptom management, review w/MD for potential next options to ensure overall comfort and avoiding suffering through EOL Fever: treat w/ apap IV; anticipate ongoing fevers Bowels/Urine: reduced but continue to make urine, at around 400cc today; bowels reduced; preference to keep rectal tube in place at this time; condom catheter w/no issues reviewed above recommendations with hospitalists; orders updated (5) ACP (advance care planning): Status: Acute Assessment and plan: reviewed current POC, changes in medications and recommendations; reviewed next steps w/Palliative MD visit in the morning, f/u pending assessment; will trial lorazepam drip for one day, then consider next steps pending results reviewed fever, skin changes, urine changes and anticipated ongoing sxs reviewed EOL sxs, progression seen since Wednesday; offered support to Mom and Aunt spent 20m w/ACP (6) Palliative care encounter: Status: Acute Assessment and plan: f/u w/PC MD tomorrow for re-evaluation, next steps; good response w/sxs management prior w/lorazepam 2mg q2h scheduled, transitioning to drip today; re-evaluate tomorrow; we are, unfortunately, reaching the limits with symptom management, may consider palliative sedation in the coming days pending response w/today's med changes case reviewed w/palliative MD Dr. Preciado Subjective Subjective Interval history since last seen: Anselmo remains hospitalized at [facility] for EOL s/p brain injury; at bedside mom Elma and aunt Nuha - last seen by palliative on Friday 11/10 Pain: hydromorphone pump now at 3.5mg/hr rate. pain has been well controlled, continues to have some distress w/suctioning and neurological storm activity Respiratory: respiratory secretions are more controlled. continues scop patch, scheduled hyoscyamine and glycopyrrolate. has continued to require intermittent suctioning, around 2-3x/day; less auditory secretions noted compared to last week. periods of apnea are a bit longer, now longest seen is around 12seconds, will have Bipin Blake breathing pattern; some distress w/secretions as above Neurological: episodes of brain storms had decreased, been well controlled; however they have increased starting yesterday, despite lorazepam 2mg q2h scheduled - Mom reports this was occurring in [facility] as well; he would get frequent sxs of these neurological storms, they'd get control w/meds for a few days, they would return; she also reports this was reviewed with her that these frequent neurological storms are further indication to his brain w/no chance of recovery Fever: intermittent fever has continued, was febrile yesterday; however this is mostly improved compared to last week Urine: continues to make urine. he is getting small amounts of IV saline w/drips and flushes to keep IVS patent; urine output at around 400ccs this afternoon, last emptied at change of shift - last IVF outside of above on Wednesday11/05/24 Bowels: rectal tube remains in place; continues w/reduced stool output - Mom would like to keep this in place, does not believe it is bothering him, provides comfort to family to have in place - last artificial nutrition via NGT 11/05/24 Skin: no lesions, rashes or skin break down concerns per report Social: continues to have friends and family visiting; his father is flying in from [place] tomorrow. ACP: remain as comfortable as possible, eliminating distress/suffering when able; Exam Narrative Exam Narrative: General: 29 y/o M lying in hospital bed; unresponsive; no grimace, no groan, no movement; friend and mother at bedside; comfort cart in room HEENT; normocephalic, atraumatic Resp: trach in place w/mask over supplying humid air, on RA; resp vary from even and unlabored to periods of apnea no longer than 15s w/shallow quick breaths after; no resp distress noted; no audible wheezes or rattle noted Card: radial/DP pulses 2+; HR in 84, even and regular; extremities warm, all 4 Urine: 550cc cloudy yellow urine in smith cath bag Skin: peeling noted on toes and fingers, no edema Objective Last Vital Signs Temp 100.6 F H 11/12/24 13:34
[2024-11-13 20:05] VITALS: TEMP 37
[2024-11-13 21:56] VITALS: TEMP 39.3
[2024-11-14] MEDS: HYDROmorphone 50 MG in Normal Saline 245 ML 17.5 MG IV_INF ×2 (01:05→15:45)
[2024-11-14] MEDS: Glycopyrrolate 0.2 MG/1 ML VIAL IVP ×6 (01:47→22:10)
[2024-11-14] MEDS: Hyoscyamine 0.125 MG SL/ORAL/CHEW SL ×6 (01:47→22:10)
[2024-11-14] MEDS: ACETAMINOPHEN 1,000 MG/100 ML BAG 400 MG IV ×3 (05:50→17:42)
--- NOTE | 2024-11-14 07:33 | W.PALPGNOTE ---
Date of service: 11/14/24 Time of Service: 07:33 Assessment and Plan Assessment and plan (1) Comfort measures only status: Status: Acute (2) End of life care: Status: Acute (3) Palliative care encounter: Status: Acute (4) Brain : Status: Acute Assessment and plan: Shmuel is an unfortunate man who at age 29 he suffered a ruptured spleen, cardiac arrest with aspiration, and is now brain-. The goal of his care is to keep him as comfortable as possible. He was having brain storms. He presently has been more comfortable with the Ativan drip at 1 mg/h. I am uncertain as to how long he will be comfortable with the drip and the boluses of the Ativan and Dilaudid. He is having high temperatures which have been monitored by nursing. He is receiving acetaminophen regularly Family is realistic about the outcome. They understand that he is brain-. They do want to him to be comfortable. His mother has guardianship and is going for permanent guardianship. I called Charu and spoke to her. We plan to meet at 3 PM today Subjective Subjective Interval history since last seen: Shmuel is a unfortunate 29-year-old man who suffered a ruptured spleen and then a massive cardiac arrest with aspiration. He was at [facility] where he was declared brain . He is presently in our hospital for comfort measures. Yesterday I spoke with Regina Pearson NP concerning his frequent brain storms. These are uncomfortable. The previous dosing of the Ativan was not sufficient to keep him from having these brain storms. I advised a Ativan drip 1 mg/h. He has not required any boluses. Nursing did not observe any brain storms overnight. Stepmother is in the room. Exam Narrative Exam Narrative: Presently Shmuel is lying in bed. He does have eye movement but does not open his eyes. He does not react to movement. His breathing is about 8 to 10/min. He is on Dilaudid 3.5 mg/h, lorazepam 1 mg/h and acetaminophen every 6 hours for his fevers. Objective Last Vital Signs Temp 102.7 F H 11/13/24 21:56
[2024-11-14 08:30] VITALS: TEMP 37
--- NOTE | 2024-11-14 09:20 | CMPROGNOTE_ITS ---
Date of service: 11/14/24 Time of Service: 09:20 Care Management Progress Note Progress Note Text Progress Note Text: Anselmo was transferred to [facility] from a tertiary care hospital on comfort care to be closer to his family and friends at the end of life. Anselmo has been admitted for 7 days and currently appears comfortable. His mother remains very supportive and is consistently at the bedside. Anselmo's father will also be here today, he is flying in from out of state. Palliative consult is planned. Per Chaplain Fulton, Father Luciana is scheduled to come to the Hospital tomorrow at 10am. CM will follow. Discharge Plan: Anselmo is here at [facility] for Comfort Care. It is believed at this time that he will remain here until the end of his life. CM will continue to follow and to support the family as able. Social Determinants of Health Screening Will the Patient Participate in the Screening?: Unable to obtain
--- NOTE | 2024-11-14 09:24 | W.PM.PROGNOT ---
Date of Service Date of service: 11/14/24 Time of Service: 14:29 Assessment and Plan Assessment and plan (1) Comfort measures only status: Status: Acute Assessment and plan: Continue CONTINUOUS PILLOWCASE CUTTER orders continue ventricular sedation decided status post meeting with Dr. 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 Brain was diagnosed based on EEG findings showing severe slowing and MRI evidence of an anoxic brain injury. The patient?s family has decided to transition to comfort measures only. Father to visit today/lying in The following plan has been made: Ongoing Dilaudid drip at 3.5 mg/h with 1 mg boluses every 15 minutes; improved tachycardia, medicate with position change Ongoing 10 mg IV Haldol every 6 hours as needed, as administered at [facility]. Ongoing lorazepam 1mg/hr infusion PRN dose available if recurrent episodes of seizure-like activity Scheduled acetaminophen for fever will add as needed ketorolac Continue to adjust meds as needed. Palliative consult is ongoing?continue Antibiotics not an option in the setting of any developing infection Discussed with Dr. Mason Subjective Subjective Patient reports: voiding w/o difficulty, bowel movement and fever; denies tolerating liquids well, tolerating a regular diet, nausea, vomiting or shortness of breath Exam Narrative Exam Narrative: 29-year-old male patient on CONTINUOUS PILLOWCASE CUTTER, resting in bed, eyes are closed minimal further rapid eye movement detected upon sustain verbal and tactile stimulation, no seizure activity, improved tachycardia, RR< 20/min, abdomen is nonacute, no mottling to the extremities Objective Last Vital Signs Temp 39.3 C H 11/13/24 21:56 Time Spent with Patient Time Spent with Patient: >50 minutes Time was spent: preparing to see the patient(eg.review tests), obtaining and/or reviewing separately otained hiistory, ordering medications,tests, procedures, referring, communicating with other health healthcare financial analyst, indepentently interpreting results, counseling the patient and care coordination
[2024-11-14] MEDS: Normal Saline Flush 10 ML SYR IVP ×3 (10:26→22:11)
[2024-11-14] MEDS: LORazepam 20 MG/10 ML VIAL IVP (13:06)
--- NOTE | 2024-11-14 14:15 | CHAPLAIN ---
I checked in with Elma this morning just before she left for the [facility] for permanent guardianship of Anselmo. Anselmo seems to be resting comfortably while I was there. Elma explained that Anselmo's dad is flying in from [place] this evening to visit and he may want to have a child care associate teacher visit Anselmo. Elma gave me permission to contact Fr. Chowdhury and we arranged for him to be here tomorrow at 10 am for anointing of the sick. Elma said she was moved by the dulcimer music provided this morning by our music therapist volunteer, Fani Martin. Many friends and family members continue to come in to visit Anselmo. Dr. Preciado will be in at 3 p.m. to meet with Elma and Anselmo.
--- NOTE | 2024-11-14 16:00 | CHAPLAIN ---
I was visiting with Flo and Elma when Dr. Preciado arrived for a palliative care consult. Elma explained that she understands that Anselmo weeks ago after his cardiac arrest following this fall, and that staff is working to keep his body comfortable, and he is brain . Anselmo fell from two stories up over a month ago, came to our ED and was then transferred to [facility]. He was on a ventilator and had procedures take care of pancreas and put in drains. Charu said the family was told that Anselmo could rebound from his injuries. He suffered a cardiac arrest and aspiration and was declared brain . Elma said she was disappointed that the [facility] medical staff was not forthcoming with realistic expectations until finally the head of neurology told them Anselmo would not recover. He was transferred here to be closer to home for end of life care. Dr. Preciado explained that the medications being used to prevent or lessen Anselmo's neuro-storms are becoming less effective. Previously he was posturing, tensing, sweating and his heart was racing during these neuro-storms. Although the tensing and posturing has lessened, Anselmo still gets sweaty and his heart races during these events. Dr. Preciado talked with Elma about the option of palliative sedation which would sedate Anselmo's body to make him more comfortable. It's difficult to tell how long Anselmo will live, with or without palliative sedation, but he would be more comfortable, Dr. Preciado explained. Anselmo's comfort is Elma's primary concern. She said she feels like she lost him weeks ago, and wants to ease his discomfort, and agreed to palliative sedation. Anselmo's dad is flying in [facility], so Dr. Preciado said she would check back into tomorrow morning and not plan to do palliative sedation until then. Elma explained that although she and Anselmo's dad are and each has remarried other people now, they are friends and agree with the course of Anselmo's care.
[2024-11-14 20:07] VITALS: TEMP 37
[2024-11-15] MEDS: Glycopyrrolate 0.2 MG/1 ML VIAL IVP ×6 (01:10→22:53)
[2024-11-15] MEDS: ACETAMINOPHEN 1,000 MG/100 ML BAG 400 MG IV ×4 (01:11→18:45)
[2024-11-15] MEDS: Normal Saline Flush 10 ML SYR IVP ×9 (01:11→22:53)
[2024-11-15] MEDS: Hyoscyamine 0.125 MG SL/ORAL/CHEW SL ×6 (01:11→22:53)
[2024-11-15] MEDS: LORazepam 20 MG/10 ML VIAL IVP ×3 (02:02→21:27)
[2024-11-15] MEDS: HYDROmorphone 50 MG in Normal Saline 245 ML 17.5 MG IV_INF (06:01)
--- NOTE | 2024-11-15 06:32 | RESPIRATORY ---
T/o shift pt has remained on hiflow trach collar 21% for humidity and is requiring frequent suctioning. Sx copious thick secretions darkening in green color over the last 12 hours. Trach site looks clean, inner cannula changed at beginning of shift, and dressing changed multiple times to keep pt's skin dry and clean.
--- NOTE | 2024-11-15 07:30 | W.PALPGNOTE ---
Date of service: 11/15/24 Time of Service: 07:30 Assessment and Plan Assessment and plan (1) Brain : Status: Acute (2) End of life care: Status: Acute (3) Comfort measures only status: Status: Acute Assessment and plan: I called Anselmo's mom and legal guardian, Charu. I relayed that he had a high temperature despite acetaminophen, he had green sputum, as he had more eye movements, he received another bolus of Ativan overnight due to probable neuro storming, and that he did not look as comfortable as he did yesterday morning. We had talked about starting a propofol drip to also help him to be comfortable. She understands that this may hasten his . She has signed the papers for palliative sedation. She very much wants this started so that it can provide comfort to her son. I want to protect his brain is much as possible. I am going to increase the Ativan drip to 1.5 mg/h. I will start the propofol drip at 2 mg/h with instructions to increase by 1 to 2 mg with neuro storms. I did speak to hospitalist and will be in contact with them regularly. Subjective Subjective Interval history since last seen: I spoke with the patient's nurse. She states that overnight he has required Dilaudid prior to movements and also a bolus of Ativan for probable neuro storm. She feels that he is much more comfortable than what he has been when he originally return to [facility]. He is not posturing is much in the neuro storms have decreased with the Ativan drip. Bedside nurse states that his eye movement has increased today versus yesterday. Additionally he has significant green secretions when they do trach care Exam Narrative Exam Narrative: Patient looked diaphoretic. I did take his temperature and it was 38.9 despite Tylenol on board. He had more eye movement today than he had yesterday. He is not tachycardic. His breaths are about 10 to 12/min. It looks like he has put out some feces. Urine bag has recently been emptied. Objective Last Vital Signs Temp 102.7 F H 11/13/24 21:56
[2024-11-15 08:12] VITALS: TEMP 37
--- NOTE | 2024-11-15 09:10 | CMPROGNOTE_ITS ---
Date of service: 11/15/24 Time of Service: 09:10 Care Management Progress Note Progress Note Text Progress Note Text: Anselmo was transferred to [facility] from a tertiary care hospital on comfort care to be closer to his family and friends at the end of life. Anselmo has been admitted for 8 days and currently appears comfortable. His mother remains very supportive and Anselmo's father arrived from out of state yesterday. Anselmo is taking hydromorphone infusion and propofol for palliative sedation (started today) following family discussion with Palliative Care. CM will continue to follow and be supportive during the difficult time. Discharge Plan: Anselmo is here at [facility] for Comfort Care. It is believed at this time that he will remain here until the end of his life. CM will continue to follow and to support the family as able. Social Determinants of Health Screening Will the Patient Participate in the Screening?: Unable to obtain
--- NOTE | 2024-11-15 09:29 | PGE_ITS ---
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 Brain was diagnosed based on EEG findings showing severe slowing and MRI e vidence of an anoxic brain injury. The patient?s family has decided to transition to comfort measures only. Ongoing TIME SIGNAL WIRER orders conscious sedation decided status post meeting with Dr. Preciado and family : Initiated on propofol at 2 mL/h Will continue medicines that have no adverse effect or impairing comfort The following plan has been made: * Ongoing Dilaudid drip at 3.5 mg/h with 1 mg boluses every 15 minutes; improved tachycardia, medicate with position change * Ongoing 10 mg IV Haldol every 6 hours as needed, as administered at [facility]. * Ongoing lorazepam 1.5 mg/hr infusion PRN dose available if recurrent episodes of seizure-like activity * Scheduled acetaminophen for fever will add as needed ketorolac * Continue to adjust meds as needed. Palliative consult: Dr Preciado guiding palliative sedation parameters Discussed with Dr. Mason Subjective Subjective Patient reports: voiding w/o difficulty, bowel movement, fever and other (No REM , during exam, no increased reflex acitivities); denies tolerating liquids well, tolerating a regular diet, nausea, vomiting or shortness of breath Exam Narrative Exam Narrative: 29-year-old male patient on TIME SIGNAL WIRER, resting in bed, eyes are closed no rapid eye movement detected upon verbal and tactile stimulation, no seizure activity, ongoing improved tachycardia, RR< 20/min, abdomen is nonacute, no mottling to the extremities Objective Last Vital Signs Temp 39.3 C H 11/13/24 21:56 Time Spent with Patient Time Spent with Patient: >50 minutes Time was spent: preparing to see the patient(eg.review tests), obtaining and/or reviewing separately otained hiistory, ordering medications,tests, procedures, referring, communicating with other health medicare sales representative, indepentently interpreting results, counseling the patient and care coordination
--- NOTE | 2024-11-15 10:46 | CHAPLAIN ---
Anselmo's father, Shmuel, who flew in from [place], [place], arrived last night and is here again this morning with Anselmo. Anselmo's mom, Elma, is staying home today after being here every day since Anselmo was transferred here from [facility] a week ago. Dr. Preciado met with Elma yesterday to talk about next steps in Anselmo's care, and she will be back today at noon to start palliative sedation for Anselmo to keep him comfortable. He has continues to have neuro storms that tense his muscles, raise his temperature and elevate his heart rate. Fr. Chowdhury was in this morning to offer nAselmo anointing of the sick and last rites, with Shmuel in the room. He offered to return if anyone would like him to. I will continue to check in on Shmuel today. A food cart has been ordered for the room.
[2024-11-15] MEDS: PROPOFOL 1,000 MG/100 ML BTL 2 MG IV_INF (13:04)
--- NOTE | 2024-11-15 13:59 | PHACLINREV_ITS ---
Pharmacy Admission Review Admission Clinical Review Admission Pharmacy Review: Palliative care encounter (Acute) ACP (advance care planning) (Acute) End of life care (Acute) Comfort measures only status (Acute) Injury of spleen (Acute) No Known Allergies Allergy (Verified 10/01/24 22:52) Resuscitation Status DNR/DNI Height 5 ft 10 in Weight 73.482 kg Pharmacy Admission Review Renal Dosing Medications needing adjustments: Reviewed (CrCl 112.26 mL/min) Anticoagulation DVT Prophylaxis: N/A (RESIN COATER) Opiate Usage Evaluate Pain Scale/Pains Meds: Reviewed (hydromorphone infusion @ 3.5mg/hr) Relevant Labs Electrolytes, C-Reactive P, ESR: N/A (RESIN COATER) Cardiac Review BP, HR, EF%: Reviewed (RESIN COATER) QTc Review QTc: Reviewed (No EKG on file) IV to PO Switch IV Medications: Reviewed Home Meds Home Med List reviewed: Reviewed Current Meds Current Medication Order Review: Reviewed Comments: hydromorphone infusion @ 3.5mg/hr lorazepam infusion @1.5mg/hr propofol for palliative sedation (started today) @ 2mL/hr
[2024-11-15] MEDS: HYDROmorphone 50 MG in Normal Saline 245 ML 10 MG IV_INF (17:20)
[2024-11-16] MEDS: ACETAMINOPHEN 1,000 MG/100 ML BAG 400 MG IV ×4 (00:54→17:36)
[2024-11-16 01:47] VITALS: TEMP 36.6
[2024-11-16] MEDS: Normal Saline Flush 10 ML SYR IVP ×3 (03:03→09:13)
[2024-11-16] MEDS: Glycopyrrolate 0.2 MG/1 ML VIAL IVP ×6 (03:04→22:35)
[2024-11-16] MEDS: LORazepam 20 MG/10 ML VIAL IVP ×3 (06:09→11:36)
--- NOTE | 2024-11-16 07:34 | W.PALPGNOTE ---
Date of service: 11/16/24 Time of Service: 07:34 Assessment and Plan Assessment and plan (1) Persistent vegetative state: Status: Acute Assessment and plan: 29-year-old man in a persistent vegetative state. He seems more comfortable now with less neuro outbursts. Nursing has a good plan for administering Ativan 2 mg IV push prior to patient care. Much more relaxed. Will continue to increase the propofol if he has neuro bursts. It seems to be working better than the Ativan. Family continues to be by the bedside intermittently. All people are on board with his care. Nursing is going to check into whether there is some sort of a mist type of Mucinex that might help to break up his secretions. I have observed no choking I am available by cell phone if staff have any questions. [phone]. A member of the palliative team will be in tomorrow but I will not. Subjective Subjective Interval history since last seen: Nursing states that the propofol is making him more comfortable. He is having less neuro outbursts. He still is having some twitching. Prior to patient care they have been giving him 2 mg of Ativan and it is made a big difference it is much more effective than the Dilaudid. Nursing team also wanted to know if there was some sort of Mucinex type liquid that could be placed in his moisturized air which may help with some of his secretions. He is on a scopolamine patch. His discharge is copious and green. Fever is better this morning. He is making less urine Exam Narrative Exam Narrative: He is lying and looks comfortable. He does not look diaphoretic. He did not react to sternal rub or pressure on his nailbed. (Nursing by the bedside said that he had previously reacted to this at times. I reviewed with nursing all drips etc. Objective Last Vital Signs Temp 97.9 F 11/16/24 01:47
[2024-11-16 08:09] VITALS: TEMP 37
[2024-11-16] MEDS: Hyoscyamine 0.125 MG SL/ORAL/CHEW SL ×3 (09:12→17:36)
[2024-11-16] MEDS: PROPOFOL 1,000 MG/100 ML BTL 7 MG IV_INF (09:36)
[2024-11-16 10:15] VITALS: TEMP 37
--- NOTE | 2024-11-16 12:34 | PGE_ITS ---
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 Brain was diagnosed based on EEG findings showing severe slowing and MRI evidence of an anoxic brain injury. The patient?s family has decided to transition to comfort measures only. Continue FLOWER SHOP LABORER/DESIGNER orders Palliative sedation decided and ongoing status post meeting with Dr. Preciado and family : on propofol at 8 mL/h titrating PRN Will continue medicines that have no adverse effect or impairing comfort The following plan has been made: * Ongoing Dilaudid drip at 2 mg/h with 1 mg boluses every 15 minutes; improved tachycardia, medicate with position change * Ongoing 10 mg IV Haldol every 6 hours as needed, as administered at [facility]. * Ongoing lorazepam 1.5 mg/hr infusion PRN dose available if recurrent episodes of seizure-like activity * Scheduled acetaminophen for fever will add as needed ketorolac * Continue to adjust meds as needed. Palliative consult: Dr Preciado guiding palliative sedation parameters - increasing propofol as per orders for eye opening reflex and flutter of lid RT : no nebs to reduce secretion needed at this time Discussed with Dr. Mason Subjective Subjective Patient reports: voiding w/o difficulty (reduced output ), bowel movement and other (no neuro agitation reported but eye opening , flutter of lids and cephalization); denies nausea or vomiting Exam Narrative Exam Narrative: 29-year-old male patient on FLOWER SHOP LABORER/DESIGNER, resting in bed, eyes are closed rapid eye movement non overt seizure activity, no tachycardia, RR< 20/min, abdomen is nonacute, no mottling to the extremities Objective Last Vital Signs Temp 36.6 C 11/16/24 01:47 Time Spent with Patient Time Spent with Patient: >50 minutes Time was spent: preparing to see the patient(eg.review tests), obtaining and/or reviewing separately otained hiistory, ordering medications,tests, procedures, referring, communicating with other health director career services, indepentently interpreting results, counseling the patient and care coordination
[2024-11-16] MEDS: Scopolamine 1 MG/3 DAYS PATCH TD (13:07)
[2024-11-16 13:45] VITALS: TEMP 37
--- NOTE | 2024-11-16 16:49 | CMPROGNOTE_ITS ---
Date of service: 11/16/24 Time of Service: 16:49 Care Management Progress Note Progress Note Text Progress Note Text: Anselmo was lying in bed, resting comfortably, when CM met with him; his father was in the room visiting. His father expressed gratitude to [facility] for having him here for his end of life care. Per RN, he was initiated on palliative sedation today, as he was not appearing comfortable on the previous regiment of pain control. His RN stated that he appears much more comfortable today. CM offered support to his family and friends, who have been visiting. CM will continue to follow. Discharge Plan: Anselmo is here at [facility] for Comfort Care. It is believed at this time that he will remain here until the end of his life. CM will continue to follow and to support the family as able. Social Determinants of Health Screening Will the Patient Participate in the Screening?: Unable to obtain
[2024-11-16 17:03] VITALS: TEMP 37
[2024-11-16] MEDS: HYDROmorphone 50 MG in Normal Saline 245 ML 10 MG IV_INF (18:13)
[2024-11-16] MEDS: PROPOFOL 1,000 MG/100 ML BTL 9 MG IV_INF (21:15)
[2024-11-17] MEDS: ACETAMINOPHEN 1,000 MG/100 ML BAG 400 MG IV ×4 (00:59→17:48)
[2024-11-17] MEDS: Hyoscyamine 0.125 MG SL/ORAL/CHEW SL ×6 (01:28→22:36)
[2024-11-17] MEDS: Glycopyrrolate 0.2 MG/1 ML VIAL IVP ×6 (01:28→22:36)
[2024-11-17] MEDS: Normal Saline Flush 10 ML SYR IVP ×3 (01:28→22:36)
[2024-11-17] MEDS: PROPOFOL 1,000 MG/100 ML BTL 10 MG IV_INF ×2 (07:44→16:08)
[2024-11-17 08:01] VITALS: TEMP 37
--- NOTE | 2024-11-17 10:30 | PDOC.CMPRO ---
Date of service: 11/17/24 Time of Service: 10:30 Care Management Progress Note Progress Note Text Progress Note Text: Anselmo is here at [facility] for Comfort Care, now on Palliative sedation in an effort to manage symptoms. Dr. Preciado is closely monitoring and providing titration recommendations (see documentation.) Anselmo appears much more comfortable/relaxed today, his father and Aunt Sofie, are at his bedside. Anselmo's father lives out of state and is planning to catch a flight later this evening. Angelina Choe, from the Department of Public Guardian called today with questions pertaining to Guardianship and requests further medical documentation to submit to the Court. Following this conversation RODOLFO spoke with Elma (mother) who advises that she has worked with Angelina, and questions whether she is up to date on the progress made with the Court because she was not present for the hearing which granted her temp guardianship on 11/02/24. Elma is planning on bringing whatever documentation the court gave her on 11/02 to the hospital later today, but is also expecting more documents by mail. RODOLFO reached out to Angelina later in the day to provide her with guidance on the process to obtain patient records. While this financial underwriter was on the phone with Angelina, she was able to locate court documents supporting Elma Mendez, as temporary Guardian and clarified that she is now working on the next court process, which is to establish permanent guardianship. Discharge Plan: Anselmo is here at [facility] for Comfort Care, now on Palliative sedation in an effort to manage symptoms. Dr. Preciado is closely monitoring and providing titration recommendations (see documentation.) CM will continue to follow and to support the family as able. Social Determinants of Health Screening Will the Patient Participate in the Screening?: Unable to obtain
[2024-11-17] MEDS: HYDROmorphone 50 MG in Normal Saline 245 ML 10 MG IV_INF (15:51)
[2024-11-17 17:51] VITALS: TEMP 37
--- NOTE | 2024-11-17 18:24 | W.PM.PROGNOT ---
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 Brain was diagnosed based on EEG findings showing severe slowing and MRI evidence of an anoxic brain injury. The patient?s family has decided to transition to comfort measures only. Angelina Choe, from the Department of Public Guardian called requesting information on the patient. Care management discussed case with Tiburcio Valentin. Court documents supporting Elma Mendez as temporary Guardian localized Ongoing SENIOR FINANCIAL REPORTING ACCOUNTANT orders Palliative sedation ongoing status post meeting with Dr. Preciado and family : on propofol at 10 mLs/h with ongoing as needed titration Will continue medicines that have no adverse effect or impairing comfort The following plan has been made: Ongoing Dilaudid drip at 2 mg/h with 1 mg boluses every 15 minutes as needed for neurostorming and seizure-like activity Ongoing 10 mg IV Haldol every 6 hours as needed, as administered at [facility]. Ongoing lorazepam 1.5 mg/hr infusion and as needed doses Scheduled acetaminophen for fever will add as needed ketorolac Palliative consult: Dr Preciado guiding palliative sedation parameters - increasing propofol as per orders for eye opening reflex RT : no nebs to reduce secretion needed at this time and avoid deep suctioning patient. Fever suctioning excessive secretions outside of trach or drooling from mouth Discussed with Dr. Mason Subjective Subjective Interval history since last seen: SENIOR FINANCIAL REPORTING ACCOUNTANT patient without without profuse secretion, diaphoresis, fever, vomiting. Caliber appears comfortable. Exam Narrative Exam Narrative: Resting comfortably in bed, eyes are closed no rapid eye movement or seizure activity, S1-S2 regular, unlabored breathing, abdomen is nonacute, no mottling to the extremities Objective Last Vital Signs Temp 36.6 C 11/16/24 01:47 Time Spent with Patient Time Spent with Patient: >50 minutes Time was spent: preparing to see the patient(eg.review tests), obtaining and/or reviewing separately otained hiistory, ordering medications,tests, procedures, referring, communicating with other health toddler caregiver, indepentently interpreting results, counseling the patient and care coordination
[2024-11-17 20:25] VITALS: TEMP 37
[2024-11-18] VITALS (8 sets, daily range): TEMP 37–37.6
[2024-11-18] MEDS: ACETAMINOPHEN 1,000 MG/100 ML BAG 400 MG IV ×5 (00:06→23:54)
[2024-11-18] MEDS: Hyoscyamine 0.125 MG SL/ORAL/CHEW SL ×6 (01:40→21:59)
[2024-11-18] MEDS: Glycopyrrolate 0.2 MG/1 ML VIAL IVP ×6 (01:40→21:59)
[2024-11-18] MEDS: Ketorolac 15 MG/ML VIAL IVP (01:40)
[2024-11-18] MEDS: PROPOFOL 1,000 MG/100 ML BTL 10 MG IV_INF ×3 (01:49→19:35)
[2024-11-18] MEDS: Normal Saline Flush 10 ML SYR IVP ×3 (11:18→19:52)
[2024-11-18] MEDS: HYDROmorphone 50 MG in Normal Saline 245 ML 10 MG IV_INF (15:18)
--- NOTE | 2024-11-18 16:45 | PGE_ITS ---
Date of Service Date of service: 11/18/24 Time of Service: 16:45 Assessment and Plan Assessment and plan (1) Comfort measures only status: Status: Acute Assessment and plan: continue current SERVICE LOSS CONTROL CONSULTANT orders followed by palliative discussed with DR Whitaker Subjective Subjective Interval history since last seen: resting comfortably. Exam Narrative Exam Narrative: White male is resting quietly on his bed eyes closed mother at bedside respirations even and unlabored and is pale warm dry Objective Last Vital Signs Temp 36.6 C 11/16/24 01:47 Time Spent with Patient Time Spent with Patient: <25 minutes Time was spent: preparing to see the patient(eg.review tests), obtaining and/or reviewing separately otained hiistory and counseling the patient (discussion with mother)
[2024-11-19] VITALS (7 sets, daily range): PULSE 140; TEMP 37–40.4; O2SAT 55
[2024-11-19] MEDS: Glycopyrrolate 0.2 MG/1 ML VIAL IVP ×6 (01:53→21:24)
[2024-11-19] MEDS: Hyoscyamine 0.125 MG SL/ORAL/CHEW SL ×6 (01:53→21:24)
[2024-11-19] MEDS: PROPOFOL 1,000 MG/100 ML BTL 10 MG IV_INF ×2 (05:43→15:53)
[2024-11-19] MEDS: ACETAMINOPHEN 1,000 MG/100 ML BAG 400 MG IV ×3 (05:48→18:19)
[2024-11-19] MEDS: Ketorolac 15 MG/ML VIAL IVP (12:43)
[2024-11-19] MEDS: Normal Saline Flush 10 ML SYR IVP ×4 (12:44→21:24)
[2024-11-19] MEDS: Scopolamine 1 MG/3 DAYS PATCH TD (12:51)
[2024-11-19] MEDS: HYDROmorphone 50 MG in Normal Saline 245 ML 10 MG IV_INF (15:58)
--- NOTE | 2024-11-19 17:14 | W.PM.PROGNOT ---
Date of Service Date of service: 11/19/24 Time of Service: 17:14 Assessment and Plan Assessment and plan (1) Comfort measures only status: Status: Acute Assessment and plan: continue current EXPORT FREIGHT MANAGER orders followed by palliative discussed with DR Whitaker Subjective Subjective Patient reports: fever Interval history since last seen: no urine output no apparent distress Exam Narrative Exam Narrative: White male is resting quietly on his bed eyes closed respirations even and unlabored and is dusky warm dry Objective Last Vital Signs Temp 40.2 C H 11/19/24 13:47 Pulse 140 H 11/19/24 13:47 Pulse Ox 55 L 11/19/24 13:47 Time Spent with Patient Time Spent with Patient: <25 minutes Time was spent: preparing to see the patient(eg.review tests)
[2024-11-19] MEDS: LORazepam 20 MG/10 ML VIAL IVP (22:22)
[2024-11-20 00:50] VITALS: TEMP 37
[2024-11-20] MEDS: ACETAMINOPHEN 1,000 MG/100 ML BAG 400 MG IV ×3 (01:11→14:27)
[2024-11-20] MEDS: Glycopyrrolate 0.2 MG/1 ML VIAL IVP ×4 (01:12→13:44)
[2024-11-20] MEDS: Hyoscyamine 0.125 MG SL/ORAL/CHEW SL ×4 (01:12→13:44)
[2024-11-20] MEDS: Normal Saline Flush 10 ML SYR IVP ×2 (01:44→09:22)
[2024-11-20] MEDS: PROPOFOL 1,000 MG/100 ML BTL 10 MG IV_INF ×2 (02:02→10:00)
[2024-11-20 04:23] VITALS: TEMP 37
--- NOTE | 2024-11-20 07:16 | W.PALPGNOTE ---
Date of service: 11/20/24 Time of Service: 07:16 Assessment and Plan Assessment and plan (1) Comfort measures only status: Status: Acute (2) Persistent vegetative state: Status: Acute Assessment and plan: Anselmo appears to be entering into the active dying stage. Yesterday when his fever was high and oxygen saturations were low he may have had a mucous plug. He does sound like he has a lot of upper airway secretions at this time, but he looks very comfortable and is not tachypneic. I am going to decrease the Dilaudid. He will continue to have this available on an ongoing basis but it a little bit lower amount. Additionally will use either Dilaudid or Ativan prior to patient care by nursing. I would like to space out the acetaminophen some. He has had significant amount of internal damage during this 6 to 8 weeks saga. Will decrease it to 3000 mg daily and make this as needed. Charu, his mother, is exhausted. She understands that Anselmo may while she is not at the bedside. She feels that she is doing her best and is comfortable with her attendance by the bedside when she can. Unfortunately we do not know how long this will be. He seems to be entering a more active phase of the dying process. Nursing is doing wonderful wonderful care for this unfortunate person. I will continue to see regularly Subjective Subjective Interval history since last seen: Yesterday Anselmo did have a high temperature and low oxygenation. His mother was called in for concerns that he may be actively dying. I spoke with Charu yesterday afternoon and she stated that he was comfortable. She is having difficulty being at his bedside and understands that he may when she is not there. Today Anselmo looks better. He continues to breathe normally. Nursing is delivering excellent care Exam Narrative Exam Narrative: Flo is lying in his bed. He is not tachypneic. He does not look feverish. His heart rate is in the 90s. I do not see that he is clamping down in his hands or feet. His upper airway does have secretions. He seems to be handling these okay at this time Objective Last Vital Signs Temp 104.4 F H 11/19/24 13:47 Pulse 140 H 11/19/24 13:47 Pulse Ox 55 L 11/19/24 13:47
[2024-11-20 08:21] VITALS: TEMP 37
--- NOTE | 2024-11-20 09:45 | CMPROGNOTE_ITS ---
Date of service: 11/20/24 Time of Service: 09:45 Care Management Progress Note Progress Note Text Progress Note Text: Anselmo is here at [facility] for Comfort Care, now on Palliative sedation in an effort to manage symptoms. Dr. Preciado is closely monitoring and providing titration recommendations (see documentation.) Anselmo appears comfortable, family continues to visit, his mother Elma is exhaused but hanging in there. CM will follow. Discharge Plan: Anselmo is here at [facility] for Comfort Care, now on Palliative sedation in an effort to manage symptoms. Dr. Preciado is closely monitoring and providing titration recommendations (see documentation.) CM will continue to follow and to support the family as able. Social Determinants of Health Screening Will the Patient Participate in the Screening?: Unable to obtain
[2024-11-20] MEDS: LORazepam 20 MG/10 ML VIAL IVP (13:44)
--- NOTE | 2024-11-20 16:32 | W.PM.DS.N ---
Date of service: 11/20/24 Time of Service: 16:32 DS: Diagnosis Discharge Diagnosis (1) Comfort measures only status: Status: Acute (2) Persistent vegetative state: Status: Acute Discharge Plan Disposition Patient Disposition: Discharge Details Reason For Visit: COMFORT CARE Admit Date/Time: 11/07/24 22:31 Admit Provider: Kenneth Salinas Attending Provider: Kenneth Slainas Primary Care Provider: Demetrius Woodruff Hospital Course Hospital Course: This 29-year-old male, with no significant past medical history, was initially seen at [facility] on 10/01/2024 after a traumatic fall. The patient had been intoxicated and fell from a second-story door, landing on his abdomen onto a short wall. At the time of his presentation, there were no signs of head trauma, and he was alert and oriented. He was diagnosed with a grade 4 splenic injury and recommended for transfer to [facility] for further management. Upon arrival at [facility], the patient underwent an emergent splenectomy, and a drain was placed. He experienced some initial recovery but developed hypertension, tachycardia, and electrolyte imbalances, as well as abdominal distention and acute kidney injury. On 10/04/2024, his mental status began to decline, and he was found to be hyponatremic with worsening GLADIS and elevated lactic acid levels. It was later revealed that the patient had a history of heavy alcohol use. In a tragic turn of events, while receiving treatment for these complications, the patient aspirated and subsequently suffered a cardiac arrest. He was resuscitated with return of spontaneous circulation but remained in a comatose state. His neurologic function did not improve despite aggressive care, and EEG showed severe brain slowing. An MRI revealed anoxic brain injury, leading to the diagnosis of brain . At this point, after a thorough discussion with the family, it was decided to transition the patient to comfort measures only. The family requested the transfer of the patient back to [facility] so they could be closer to him. Comfort measures were continued, including Dilaudid for pain management, as well as Haldol, Propofol and Ativan for sedation and to manage any anxiety or distress. The patient at 1625h. He had no respirations and no pulse. He appeared comfortable at time of . Family was notified via telephone of his . The family's wishes for cremation were communicated and respected. Organ donation was declined by the organ bank. The medical geneticist declined also. The patient?s end-of-life care was handled with respect, and the family was supported through this difficult decision. Discharge Data Cause of : Anoxia of brain Exam Narrative Exam Narrative: No pulse, no respirations DS: Data Vitals/I&O Vitals and I&O: Vital Signs Temperature 40.2 C H 11/19/24 13:47 Temperature Source Temporal Artery Scan 11/19/24 12:41 Pulse 140 H 11/19/24 13:47 Pulse Rhythm Regular 11/08/24 03:10 Respiratory Effort Labored, Nasal Flaring, Grunting 11/08/24 03:10 Respiratory Depth Deep 11/08/24 03:10 Respiratory Pattern Irregular 11/08/24 03:10 Pulse Oximetry 55 L 11/19/24 13:47 Oxygen Delivery Method Trach Collar 11/19/24 19:25 Oxygen Flow Rate 11/20/24 08:21 Fraction of Inspired Oxygen (FIO2) 21 11/20/24 08:21 Pain Level 0 11/20/24 03:25 Comment Mother goldy notifed 11/19/24 13:47 Intake & Output 11/19/24 11/20/24 11/20/24 23:59 11:59 23:59 Intake Total 499.6 / 922.967 504.292 / 636.192 131.9 / 636.192 Output Total 50 / 550 450 / 700 250 / 700 Balance 449.6 / 372.967 54.292 / -63.808 -118.1 / -63.808 Intake: IV 499.6 / 922.967 504.292 / 636.192 131.9 / 636.192 Output: Urine 50 / 550 450 / 700 250 / 700 Other: Urine Color Dark Angi Dark Angi Straw Urine Appearance Sediment Sediment Cloudy Sediment PFSH All Active Problems (Updated 11/15/24 @ 09:13 by Zully Preciado MD, [place]) Persistent vegetative state (Acute) Palliative care encounter (Acute) ACP (advance care planning) (Acute) End of life care (Acute) Comfort measures only status (Acute) Injury of spleen (Acute) Infrapatellar bursitis of both knees (Acute) Overweight (Acute) Medical History Hypertension Hyperlipidemia Surgical History No significant past surgical history Family History Mother No problems noted. Father No problems noted. Sister No problems noted. Brother No problems noted. Maternal Grandfather , 78 No problems noted. Paternal Grandfather No problems noted. Maternal Grandmother No problems noted. Paternal Grandmother No problems noted. Social History Smoking/Tobacco Use Status: Unknown Tobacco: How many years used: 10 Quit status: has quit before Second Hand Exposure: Yes Smoking risk assessment performed?: Yes Details: Pt unable to answer Additional Social history: Pt unable to answer Time Spent with Patient Time Spent with Patient: <45 minutes Time was spent: referring, communicating with other health care management coordinator and care coordination
--- NOTE | 2024-11-20 17:55 | W.PM.DDS ---
Date of service: 11/20/24 Time of Service: 17:55 Discharge Plan Disposition Patient Disposition: Discharge Details Reason For Visit: COMFORT CARE Admit Date/Time: 11/07/24 22:31 Admit Provider: Kenneth Salinas Attending Provider: Kenneth Salinas Primary Care Provider: Demetrius Woodruff Hospital Course Hospital Course: This 29-year-old male, with no significant past medical history, was initially seen at [facility] on 10/01/2024 after a traumatic fall. The patient had been intoxicated and fell from a second-story door, landing on his abdomen onto a short wall. At the time of his presentation, there were no signs of head trauma, and he was alert and oriented. He was diagnosed with a grade 4 splenic injury and recommended for transfer to [facility] for further management. Upon arrival at [facility], the patient underwent an emergent splenectomy, and a drain was placed. He experienced some initial recovery but developed hypertension, tachycardia, and electrolyte imbalances, as well as abdominal distention and acute kidney injury. On 10/04/2024, his mental status began to decline, and he was found to be hyponatremic with worsening GLADIS and elevated lactic acid levels. It was later revealed that the patient had a history of heavy alcohol use. In a tragic turn of events, while receiving treatment for these complications, the patient aspirated and subsequently suffered a cardiac arrest. He was resuscitated with return of spontaneous circulation but remained in a comatose state. His neurologic function did not improve despite aggressive care, and EEG showed severe brain slowing. An MRI revealed anoxic brain injury, leading to the diagnosis of brain . At this point, after a thorough discussion with the family, it was decided to transition the patient to comfort measures only. The family requested the transfer of the patient back to [facility] so they could be closer to him. Comfort measures were continued, including Dilaudid for pain management, as well as Haldol, Propofol and Ativan for sedation and to manage any anxiety or distress. The patient at 1625h. He had no respirations and no pulse. He appeared comfortable at time of . Family was notified via telephone of his . The family's wishes for cremation were communicated and respected. Organ donation was declined by the organ bank. The faculty i on call medical assistant declined also. The patient?s end-of-life care was handled with respect, and the family was supported through this difficult decision. Discharge Data Cause of : Anoxia of brain Discharge Sum: Prov Provider Consults: 11/08/24 16:35 Palliative Care Consult [CONS] Routine Consultation Status:: Contact made by Clarification:: Manage/follow per spec. Reason for consult:: The patient is a 29 year-old M s/p cardiac arrest, in consideration of the current symptom burden, the family is seeking guidance on end-of-life care, including symptom management, advanced care planning, and the consideration of hospice services. Discharge Sum: Diag PCOD Cause of : Anoxia of brain Contributing Factors (1) Comfort measures only status: (2) Persistent vegetative state: Discharge Sum: Summary Additional Data Confirmation of as documented by pronouncing clinician: no pulse, no respirations, no heart sounds and pupils fixed and dilated Family: contacted Attending/PCP notified?: Yes Was code activated?: No Autopsy requested?: No x ray examiner of aircraft notified?: Yes Organ bank notified?: Yes Advance directives: Yes Hospice patient?: No
== END 2024-11-20 21:58 | disposition expired | DRG 91 ==
PROVIDERS: Nurse Practitioner Acute Care; Admitting Provider Hospitalist; PCP Nurse Practitioner Family; Responsible Provider Nurse Practitioner Family; Visit Provider Hospitalist
DX: G93.1 Anoxic brain damage, not elsewhere classified (principal); R40.3 Persistent vegetative state; Z51.5 Encounter for palliative care; Z90.81 Acquired absence of spleen; S22.42XD Multiple fractures of ribs, left side, subsequent encounter for fracture with routine healing; W17.89XD Other fall from one level to another, subsequent encounter; F17.210 Nicotine dependence, cigarettes, uncomplicated; F12.90 Cannabis use, unspecified, uncomplicated; Z93.0 Tracheostomy status; R00.0 Tachycardia, unspecified; R50.9 Fever, unspecified
CPT/HCPCS: 00123; 94640; 94664; 94760; 99223; 99231; 99232; 99233; J0131; J1171; J1596; J1885; J2060; J2704; J3490